=== PATIENT | female | born 1940 | race Caucasian/White ===

== ENCOUNTER 2023-03-21 07:01 | Emergency (ER) | payer OTHER, SELFPAY ==
[2023-03-21 07:03] VITALS: BP 141/76
--- NOTE | 2023-03-21 08:04 | ED.GENMED ---
History of Present Illness
<Alondra Wiley PA-C - Last Filed: 03/21/23 16:20>
General
Chief Complaint: Musculo-Skeletal Complaint
Source: patient
Exam Limitations: none
Time Seen by Provider: 03/21/23 07:40
Nursing documentation reviewed up to this point in time: agreed with
Travel History
Have you had any contact with someone who has COVID-19?: No
Do you have any symptoms of coronavirus? Fever > 100 degrees, chills, cough, shortness of breath, sore throat, loss of taste or smell, muscle aches, or headache?: No
History of Present Illness
History of Present Illness:
pt is 82 y/o F with h/o CHF, IN, HTN, SVT
left knee pain this morning, started overnight
cannot recall any injury
denies fever, chills, nausea, vomiting, h/o gout, erythema, rash, other joint pain
no known lyme disease
pt didn't take anything for pain
she had a lot of trouble walking and couldn't get to her medications
lives with her sons and called them to help her
pt has never had this before
previously had the R TKR by leandro she thinks but she cannot recall
Past History
<Alondra Wiley PA-C - Last Filed: 03/21/23 16:20>
Past History
ED Past Medical History: Other (Breast CA-last chemo in 05/21)
ED Past Surgical History: Other (left mastectomy, Port placeent)
Social History
Personal: Single
Living: with family
Employment: Employed
Review of Systems
<SHREE Maldonado Last Filed: 03/21/23 16:20>
Review of Systems
Allergies reviewed?: Yes
All Other Systems: Not applicable
Phy Exam
<Alondra Wiley PA-C - Last Filed: 03/21/23 16:20>
Physical Exam
Physical Exam:
GENERAL: Alert , in no apparent distress
HEAD: NCAT
NECK: no midline tenderness, active ROM intact, no paraspinal muscle tenderness;
EYE: pupils equal and reactive, EOMs intact.
ENT: o/p clr, mmm. no hemotympanum
CARDIAC: Regular rate and rhythm, no edema
LUNGS: Clear breath sounds bilaterally, no acute respiratory distress, no wheezes/rales/rhonchi
ABDOMEN: Soft, without focal tenderness, no r/g, no cvat
NEUROLOGICAL: Alert and oriented, no focal neuro deficits, CN intact, 5/5 strength, sensation intact
SKIN: Warm and dry,
no erythemna L knee
no rash
no warmth
normal perfusion LE
MUSCULOSKELETAL: moderate effusion, mostly suprapatellar; nontender calf/ankle
very painful ROM of th eleft knee
limited flexion 20 degrees passively
no warmth
no laxity
PSYCH: Normal and appropriate interaction.
Course
<Alondra Wiley PA-C - Last Filed: 03/21/23 16:20>
Orders/Labs/Results
Orders:
Orders
03/21/23 07:07
Knee, Left 4 or More Views [CR Knee - Left 4 Or More View*] Urgent
Comment:
Reason For Exam: pain and swelling, no injury
03/21/23 08:04
Acetaminophen [Tylenol] 650 mg PO NOW STA
Ibuprofen [Motrin] 400 mg PO NOW STA
03/21/23 09:20
Body Fluid Cell Count Urgent
What is the Body Fluid: joint
Date Specimen was Collected: 03/21/23
Time Specimen was Collected: 09:17
Comment: with DIFF
Body Fluid Crystals Urgent
What is the Body Fluid: joint
Date Specimen was Collected: 03/21/23
Time Specimen was Collected: 09:17
Body Fluid Glucose Urgent
Fluid Source: Other
Date Specimen was Collected: 03/21/23
Time Specimen was Collected: 09:17
C-Reactive Protein Urgent
Comment: ADD ON
Comprehensive Metabolic Panel Urgent
Lyme Progressive Urgent
Fluid Culture with Gram Stain Urgent
SAMANTHA Source: Joint Fluid
Specimen Description:
Date Specimen was Collected: 03/21/23
Time Specimen was Collected: 09:17
03/21/23 10:33
Complete Blood Count/With Diff Urgent
Erythrocyte Sed Rate Urgent
Comment: ADD ON
03/21/23 11:01
Add On- LAB Urgent
Tests Added?: esr, crp
Abnormal Lab Results
03/21/23 03/21/23
09:20 10:33
RBC 4.07 L 10^6/uL
(4.20-5.40)
Hgb 11.9 L g/dL
(12.0-16.0)
Hct 34.3 L %
(37.0-47.0)
Absolute Neuts (auto) 7.2 H 10^3/uL
(1.4-6.5)
Absolute Monos (auto) 1.1 H 10^3/uL
(0.1-0.6)
Neutrophils % 75.5 H %
(42.2-75.2)
Lymphocytes % 12.4 L %
(20.5-51.1)
Monocytes % 11.6 H %
(1.7-9.3)
ESR 38 H mm/hour
(0-20)
Sodium 128 L mmol/L
(135-145)
Creatinine 0.5 L mg/dL
(0.6-1.0)
Glucose 102 H mg/dl
(70-99)
Calcium 8.3 L mg/dl
(8.4-10.2)
C-Reactive Protein 64.40 H mg/L
(0.0-10.00)
Total Protein 5.9 L g/dl
(6.3-8.2)
03/21/23 10:33
03/21/23 09:20
Vital Signs
Initial and Last Documented VS:
Initial Vital Signs
Temp Pulse Resp BP Pulse Ox
98.0 F 63 17 141/76 96
03/21/23 07:03 03/21/23 07:03 03/21/23 07:03 03/21/23 07:03 03/21/23 07:03
Last Documented Vital Signs
Temp Pulse Resp BP Pulse Ox
98.0 F 64 16 129/60 97
03/21/23 07:03 03/21/23 14:48 03/21/23 14:48 03/21/23 14:48 03/21/23 14:48
<Solo Russell, DO - Last Filed: 03/21/23 13:50>
Orders/Labs/Results
Orders:
Orders
03/21/23 07:07
Knee, Left 4 or More Views [CR Knee - Left 4 Or More View*] Urgent
Comment:
Reason For Exam: pain and swelling, no injury
03/21/23 08:04
Acetaminophen [Tylenol] 650 mg PO NOW STA
Ibuprofen [Motrin] 400 mg PO NOW STA
03/21/23 09:20
Body Fluid Cell Count Urgent
What is the Body Fluid: joint
Date Specimen was Collected: 03/21/23
Time Specimen was Collected: 09:17
Comment: with DIFF
Body Fluid Crystals Urgent
What is the Body Fluid: joint
Date Specimen was Collected: 03/21/23
Time Specimen was Collected: 09:17
Body Fluid Glucose Urgent
Fluid Source: Other
Date Specimen was Collected: 03/21/23
Time Specimen was Collected: 09:17
C-Reactive Protein Urgent
Comment: ADD ON
Comprehensive Metabolic Panel Urgent
Lyme Progressive Urgent
Fluid Culture with Gram Stain Urgent
SAMANTHA Source: Joint Fluid
Specimen Description:
Date Specimen was Collected: 03/21/23
Time Specimen was Collected: 09:17
03/21/23 10:33
Complete Blood Count/With Diff Urgent
Erythrocyte Sed Rate Urgent
Comment: ADD ON
03/21/23 11:01
Add On- LAB Urgent
Tests Added?: esr, crp
Abnormal Lab Results
03/21/23 03/21/23
09:20 10:33
RBC 4.07 L 10^6/uL
(4.20-5.40)
Hgb 11.9 L g/dL
(12.0-16.0)
Hct 34.3 L %
(37.0-47.0)
Absolute Neuts (auto) 7.2 H 10^3/uL
(1.4-6.5)
Absolute Monos (auto) 1.1 H 10^3/uL
(0.1-0.6)
Neutrophils % 75.5 H %
(42.2-75.2)
Lymphocytes % 12.4 L %
(20.5-51.1)
Monocytes % 11.6 H %
(1.7-9.3)
ESR 38 H mm/hour
(0-20)
Sodium 128 L mmol/L
(135-145)
Creatinine 0.5 L mg/dL
(0.6-1.0)
Glucose 102 H mg/dl
(70-99)
Calcium 8.3 L mg/dl
(8.4-10.2)
C-Reactive Protein 64.40 H mg/L
(0.0-10.00)
Total Protein 5.9 L g/dl
(6.3-8.2)
03/21/23 10:33
03/21/23 09:20
Vital Signs
Initial and Last Documented VS:
Initial Vital Signs
Temp Pulse Resp BP Pulse Ox
98.0 F 63 17 141/76 96
03/21/23 07:03 03/21/23 07:03 03/21/23 07:03 03/21/23 07:03 03/21/23 07:03
Last Documented Vital Signs
Temp Pulse Resp BP Pulse Ox
98.0 F 64 16 129/60 97
03/21/23 07:03 03/21/23 14:48 03/21/23 14:48 03/21/23 14:48 03/21/23 14:48
Procedures
<Alondra Wiley PA-C - Last Filed: 03/21/23 16:20>
Incision/Drainage/Joint Aspiration
Left Lateral Knee:
Anethesia: 1% Lidocaine
Preparation: cleaned with Betadine
Type of procedure: aspiration
Nature of site: other (Joint fluid)
How much fluid was obtained?: number in mls (30 mL)
Fluid description: straw colored (Slightly cloudy) and blood tinged
Treatment: bandaid applied
<Alondra Wiley PA-C - Last Filed: 03/21/23 16:20>
MDM/Problems Addressed
Differential Diagnosis Includes:
OA, septic joint
MDM/Problems Addressed:
82 y/o F
tells me no history of arthritis in this lef tknee
atrauamtic left knee pain and swelling this morning causing her inability to walk. She has not had any fever or skin changes.
Patient had very limited painful range of motion of the knee with an effusion, no calf tenderness, normal distal neuroexam. Her x-ray revealed moderate DJD, were independently reviewed by me. No fractures. Discussed risk-benefit of arthrocentesis
for pain relief. As I suspected that there would not be any Reason for the patient to have septic arthritis. Most likely osteoarthritis and inflammatory effusion. I was able to remove 30 cc of fluid which did look a little bit bloody and was a
little cloudy, but it was unclear whether that was from the bleeding. Because of that I decided to send the fluid for analysis. Unfortunately the lab resulted that the could not do a cell count. Apparently there was some lag time and when the lab
was running the test and I am not sure if that is what caused the fluid declot in the tube. I appreciate the patient's Gram stain showing white cells. We were unclear whether the patient should be admitted. The patient was seen by the ED
attending. We touch base with orthopedics Dr. Arnold who then did say that the patient has been seen there and actually even had a cortisone shot in that knee and was told she needed a knee replacement. When I went back to speak with her the
patient did recall all of this and said she has been told about the knee replacement before. Patient says she was flustered initially and was not remembering that detail. I had sent ESR and CRP testing which were both elevated however the patient
has no fever and no white count. I discussed all of this findings with Dr. Arnold on-call for orthopedics and he felt that the patient likely had an effusion from OA and he felt that if she could ambulate she could go home and they will closely
follow her. Patient was able to walk with a walker to and from the bathroom. We needed to help her in her son's truck which was very high from the ground but otherwise she did okay. She was given Tylenol and ibuprofen but I hope told her to hold
the ibuprofen and take her meloxicam of breath which she normally takes. She was comfortable going home at this time.
<Alondra Wiley PA-C - Last Filed: 03/21/23 16:20>
*Critical Care Note
Total Time (30-74mins, 75-104mins- exclusive of procedures): Not Applicable
ED Attending Note
<Alondra Wiley PA-C - Last Filed: 03/21/23 16:20>
-
Portions of this chart may have been created with voice recognition software.� Occasional wrong word or��sound alike� substitutions may have occurred due to the inherent limitations of voice recognition software.
<Solo Russell DO - Last Filed: 03/21/23 13:50>
ED Attending Note
Patient seen and examined by attending physician: Yes
I performed the substantive portion of visit, reviewed & personally made and approve the management plan that is documented in note by myself or IRAIDA.: Yes
I performed a history and physical exam of patient and discussed management with resident, I reviewed resident's note and agree with documented findings and plan of care.: Yes
ED Attending Note:
I evaluated patient at bedside. The patient states that she did see [facility] orthopedics and has had steroid injection which improved therefore she did not follow-up for possible TKA. Currently she appears fairly comfortable and she reportedly
was able to ambulate to the bathroom with assistance. She lives with sons at home.
Discharge Plan
Departure
Patient Disposition: Home (Routine Discharge)
Date of Disposition: 03/21/23
Time of Disposition: 12:50
Admit to: Med/Surg
Patient with high blood pressure during this ER visit?: No
Condition: Fair
Covid-19: Not Applicable
Discharge Problem:
Arthritis of knee, left, Ambulatory dysfunction
Instructions: Osteoarthritis (DC)
Prescriptions:
New
ibuprofen 400 mg tablet
400 mg PO Q8H 3 Days Qty: 10 0RF
No Action
hydroxychloroquine 200 MG tablet
400 mg PO DAILY
melatonin 5 MG tablet
5 mg PO HS
levothyroxine 125 MCG tablet
125 mcg PO DAILY
furosemide 40 MG tablet
40 mg PO DAILY Qty: 30 0RF
Jardiance 10 MG tablet
10 mg PO DAILY Qty: 30 0RF
carvedilol 6.25 mg Tablet
12.5 mg PO DAILY
Patient Comments:
03/21/2023, prescribed for pt. to take one tablet BID but pt. states to take 2 tablets daily.
meloxicam 15 mg Tablet
15 mg PO DAILY PRN (Reason: mild pain)
polyvinyl alcohol [Dry Eyes] 1.4 % Drops
1 drp BOTH EYES DAILYPRN PRN (Reason: dry eyes)
Theragen Tablet
2 tab PO DAILY
Entresto 24-26 mg Tablet
1 tab PO BID
acetaminophen 325 MG tablet
650 mg PO Q6HPRN PRN (Reason: mild pain/fever>100.5F)
losartan 25 MG tablet
25 mg PO DAILY
folic acid 1 MG tablet
1 mg PO NOON
Referrals:
Jim Gillis MD [Active] - Follow up in 5-7 days (orthopediccs)
Anay Harkins PA-C [Family Provider] -
Activity Restrictions/Additional Instructions:
You really need to follow-up with your orthopedist. You can use the Stew wrap during the day, take it off at night and ice your knee and reapply the Stew wrap in the morning for the next couple of days. Use the walker to help you walk. Take Tylenol
3 times a day for pain. You can use either your meloxicam that you have been given before or Motrin 400 mg for pain as well 3 times a day with food for 3 to 5 days.
Call the orthopedist to make a follow-up appointment. Return to the ER immediately for fever, redness of the skin of your knee, inability to walk, severe pain or any concerns
Interventions
Interventions:
*Risk Screen - Suicide Last Done: 03/21/23 08:56
*General Assessment Last Done: 03/21/23 08:56
*Neglect/Abuse Screening Last Done: 03/21/23 08:56
ED- Fall Risk Assessment Last Done: 03/21/23 08:56
*ED COVID-19 Vaccine History Last Done: 03/21/23 08:56
*Nursing Disposition Last Done: 03/21/23 14:49
ED-Musculoskeletal Assessment Last Done: 03/21/23 08:56
Discharge Date and Time
Discharge Date/Time: 03/21/23 14:51
[2023-03-21] MEDS: MOTRIN 400 MG PO (08:47)
[2023-03-21] MEDS: TYLENOL 650 MG PO (08:47)
[2023-03-21 10:43] LABS: % Basophils 0.2 % (0-2); % Immature Granulocytes 0.3 % (0-0.5); % Lymphocytes 12.4 % (20.5-51.1); % Monocytes 11.6 % (1.7-9.3); % Neutrophils 75.5 % (42.2-75.2); Absolute Lymphocytes 1.2 10^3/uL (1.2-3.4); Absolute Monocytes 1.1 10^3/uL (0.1-0.6); Absolute Neutrophils 7.2 10^3/uL (1.4-6.5); Hematocrit 34.3 % (37.0-47.0); Hemoglobin 11.9 g/dL (12.0-16.0); Mean Corp Hgb Conc. 34.7 g/dL (33.0-37.0); Mean Corpuscular Hgb 29.2 pg (27.0-31.0); Mean Corpuscular Volume 84.3 fL (81.0-99.0); Mean Platelet Volume 8.7 fL (7.4-10.4); Nucleated Red Blood Cells % 0 %; Platelet Count 236 10^3/uL (130-400); Red Blood Cell Count 4.07 10^6/uL (4.20-5.40); Red Cell Dist. Width 13.3 % (11.5-14.5); White Blood Cell Count 9.5 10^3/uL (4.8-10.8)
[2023-03-21 10:46] LABS: ALT (SGPT) 11 U/L (0-35); AST (SGOT) 21 U/L (14-36); Albumin 3.5 g/dl (3.5-5.0); Alkaline Phosphatase 74 U/L (38-126); Blood Urea Nitrogen 15 mg/dl (7-17); Calcium 8.3 mg/dl (8.4-10.2); Carbon Dioxide 25 mmol/L (22-30); Chloride 98 mmol/L (98-107); Glucose 102 mg/dl (70-99); Potassium 3.6 mmol/L (3.5-5.1); Sodium 128 mmol/L (135-145); Total Bilirubin 1.1 mg/dl (0.2-1.3); Total Protein 5.9 g/dl (6.3-8.2); eGFR > 60.00
[2023-03-21 12:06] LABS: Body Fluid Glucose 99 mg/dl
[2023-03-21 12:26] LABS: Erythrocyte Sed Rate 38 mm/hour (0-20)
[2023-03-21 14:48] VITALS: BP 129/60
[2023-03-21 14:58] LABS: Body Fluid Granulocytes 91 %; Body Fluid Lymphocytes 5 %; Body Fluid Macrophages 4 %
[2023-03-25 16:46] LABS: Lyme Antibody Screen, EIA Negative (Negative)
== END 2023-03-21 14:51 | disposition home or self-care (01) ==
LOC: EMR 07:01
PROVIDERS: Physician Assistant; EMERGENCY PHYSICIAN Emergency Medicine; FAMILY PHYSICIAN Physician Assistant Medical
DX: M17.12 Unilateral primary osteoarthritis, left knee (principal); R26.2 Difficulty in walking, not elsewhere classified; M25.462 Effusion, left knee
CPT/HCPCS: 99283; 20610; 73564; 80053; 82945; 85025; 85652; 86140; 86618; 87015; 87070; 87205; 89051; 89060

== ENCOUNTER 2023-06-01 09:49 | Inpatient (IN) | payer MEDICARE, SELFPAY ==
[2023-05-31 21:33] VITALS: BP 157/79
--- NOTE | 2023-05-31 22:37 | ED.GENMED ---
History of Present Illness
General
Chief Complaint: Musculo-Skeletal Complaint
Source: patient
Exam Limitations: none
Time Seen by Provider: 05/31/23 22:25
Nursing documentation reviewed up to this point in time: agreed with
Travel History
Have you had any contact with someone who has COVID-19?: No
Do you have any symptoms of coronavirus? Fever > 100 degrees, chills, cough, shortness of breath, sore throat, loss of taste or smell, muscle aches, or headache?: Yes
Symptoms:: cough
History of Present Illness
History of Present Illness:
The patient is an 82-year-old female who reports that she has ' [id number]' in her left knee and the pain has become so severe that is difficult for her to walk. Patient reports that she has had left knee pain for almost a year. She denies
fevers and chills. She denies fall. She reports it has gradually become more painful and swollen. Patient also reports a cough productive of mucus, which she attributes to allergies. She denies sore throat, chest pain or shortness of breath.
She denies headache. She denies nausea, vomiting and diarrhea.
Past History
Past History
ED Past Medical History: CAD, CHF, HTN, Hypothyroidism and Other (Breast CA-last chemo in 05/21)
ED Past Surgical History: Orthopedic and Other (left mastectomy, Port placeent)
Social History
Tobacco: Other
Alcohol: Other
Drug: None
Personal: Single
Living: with family
Employment: Other
Family History
Family History: Other
Review of Systems
Review of Systems
Allergies reviewed?: Yes
All Other Systems: ROS reviewed and negative except as documented in HPI and ROS
Constitutional: Reports no symptoms
EENT: Reports runny nose
Respiratory: Reports cough
Cardiac: Reports no symptoms
ABD/GI: Reports no symptoms
: Reports no symptoms
Musculoskeletal: Reports joint pain and joint swelling
Skin: Reports no symptoms
Neurological: Reports no symptoms
Endocrine: Reports no symptoms
Hematologic/Lymphatic: Reports no symptoms
Psychiatric: Reports no symptoms
Phy Exam
Physical Exam
Physical Exam:
Physical Exam
General: no apparent distress, not acutely ill
Neck: supple. no meningeal signs. normal posterior pharynx
Heart: s1/s2 regular rate and rhythm, no murmur. equal radial pulses.
Lungs: No respiratory distress. No obvious crackles or wheezing. Patient frequently coughing
Abdomen: normal bowel sounds. not tender. no CVAT
Neuro: alert and oriented. no focal neurological deficits
Skin: no rash
Psychiatric: well kept. interactive and cooperative
Extremities: Strong pulses bilateral feet. Moderate left knee effusion. Soft tissue tenderness of left knee. Pain with flexion of left knee. Left knee is slightly warm to the touch but not erythematous
Course
Orders/Labs/Results
Orders:
Orders
05/31/23 22:37
CR Chest - 2 Views Urgent
Comment:
Reason For Exam: cough
05/31/23 23:57
Cell Count (Body Fluid) [Body Fluid Cell Count] Urgent
What is the Body Fluid: knee joint
Date Specimen was Collected: 05/31/23
Time Specimen was Collected: 23:49
Comment: left knee
Fluid Culture with Gram Stain Urgent
SAMANTHA Source: Joint Fluid
Specimen Description:
Date Specimen was Collected: 05/31/23
Time Specimen was Collected: 23:49
Comment: left knee
06/01/23 04:44
CRP [C-Reactive Protein] Urgent
Complete Blood Count/With Diff Urgent
Comprehensive Metabolic Panel Urgent
ESR [Erythrocyte Sed Rate] Urgent
06/01/23 06:35
Add On - Microbiology Urgent
Comments:: knee joint fluid
Tests Added?: joint fluid, crystals
06/01/23 07:06
Ketorolac [Toradol] 15 mg IV NOW STA
Abnormal Lab Results
06/01/23
04:44
Absolute Monos (auto) 0.7 H 10^3/uL
(0.1-0.6)
Monocytes % 11.7 H %
(1.7-9.3)
ESR 33 H mm/hour
(0-20)
Sodium 133 L mmol/L
(135-145)
Creatinine 0.4 L mg/dL
(0.6-1.0)
Glucose 109 H mg/dl
(70-99)
C-Reactive Protein 19.90 H mg/L
(0.0-10.00)
06/01/23 04:44
06/01/23 04:44
Vital Signs
Initial and Last Documented VS:
Initial Vital Signs
Temp Pulse Resp BP Pulse Ox
99.2 F 99 18 157/79 98
05/31/23 21:33 05/31/23 21:33 05/31/23 21:33 05/31/23 21:33 05/31/23 21:33
Last Documented Vital Signs
Temp Pulse Resp BP Pulse Ox
99.2 F 99 18 157/79 96
05/31/23 21:33 05/31/23 21:33 05/31/23 21:33 05/31/23 21:33 05/31/23 22:35
Procedures
Incision/Drainage/Joint Aspiration
Left Lateral Knee:
Anethesia: 1% Lidocaine with Epi
Preparation: cleaned with Betadine
Type of procedure: drain
Nature of site: other
Loculations broken up: No
How much fluid was obtained?: large amount
Fluid description: straw colored and blood tinged
Additional information:
Left knee joint drained and sent for culture and cell count. Patient tolerated procedure well and gave verbal consent prior to procedure and understands risk benefits.
MDM/Problems Addressed
Differential Diagnosis Includes:
Acute on chronic left knee pain related to osteoarthritis, gout, septic knee
MDM/Problems Addressed:
Patient presents with acute on chronic left knee pain
Chronic conditions affecting care:
Patient has chronic arthritis of left knee.
Acute Exacerbation and/or Progression of Chronic Illness:
Patient is acutely hypertensive, however, there is no sign of CHF or neurological deficit. I suspect this is more related to her being here and being anxious and uncomfortable
*Radiology
Radiology exam reviewed: preliminary read by ED provider (Chest x-ray read by me. No acute disease)
*Pulse Oximetry
Patient hypoxic: no
*Critical Care Note
Total Time (30-74mins, 75-104mins- exclusive of procedures): Not Applicable
Data Reviewed
Review of Other/Old Records Reveals: Discharge Summary (Discharge summary reviewed from 04/2021 when patient was admitted for new onset heart failure)
ED Attending Note
-
Portions of this chart may have been created with voice recognition software.� Occasional wrong word or��sound alike� substitutions may have occurred due to the inherent limitations of voice recognition software.
Discharge Plan
Departure
Patient Disposition: Admit
Date of Disposition: 06/01/23
Time of Disposition: 06:49
Admit to: Med/Surg
Presentation/result/management discussed w/ accepting MD/DO: Hospitalist
Patient with high blood pressure during this ER visit?: Yes
Condition: Good
Covid-19: Not Applicable
Discharge Problem:
Arthritis of left knee, acute left knee effusion
Prescriptions:
No Action
hydroxychloroquine 200 MG tablet
400 mg PO DAILY
melatonin 5 MG tablet
5 mg PO HS
levothyroxine 125 MCG tablet
125 mcg PO DAILY
furosemide 40 MG tablet
40 mg PO DAILY Qty: 30 0RF
Jardiance 10 MG tablet
10 mg PO DAILY Qty: 30 0RF
carvedilol 6.25 mg Tablet
12.5 mg PO DAILY
Patient Comments:
03/21/2023, prescribed for pt. to take one tablet BID but pt. states to take 2 tablets daily.
meloxicam 15 mg Tablet
15 mg PO DAILY PRN (Reason: mild pain)
polyvinyl alcohol [Dry Eyes] 1.4 % Drops
1 drp BOTH EYES DAILYPRN PRN (Reason: dry eyes)
Theragen Tablet
2 tab PO DAILY
Entresto 24-26 mg Tablet
1 tab PO BID
acetaminophen 325 MG tablet
650 mg PO Q6HPRN PRN (Reason: mild pain/fever>100.5F)
losartan 25 MG tablet
25 mg PO DAILY
folic acid 1 MG tablet
1 mg PO NOON
ibuprofen 400 mg tablet
400 mg PO Q8H 3 Days Qty: 10 0RF
Referrals:
Kevin Juarez MD [Family Provider] -
Interventions
Interventions:
*Risk Screen - Suicide Last Done: 05/31/23 21:35
*General Assessment Last Done: 05/31/23 21:35
*Neglect/Abuse Screening Last Done: 05/31/23 21:35
ED- Fall Risk Assessment Last Done: 05/31/23 22:35
*ED COVID-19 Vaccine History Last Done: 05/31/23 22:35
ED-Musculoskeletal Assessment Last Done: 05/31/23 22:35
ED- Pulmonary Assessment Last Done: 05/31/23 22:35
Discharge Date and Time
Print Language: CZECH
[2023-06-01 01:29] LABS: Body Fluid Mononuclear 4.6 %; Body Fluid Polymorphonuclear 95.4 %; Body Fluid WBC 53040 /CUMM
[2023-06-01 01:36] LABS: Body Fluid Second Tech JK
[2023-06-01 04:52] LABS: % Basophils 0.3 % (0-2); % Eosinophils 1.7 % (0-6); % Immature Granulocytes 0.2 % (0-0.5); % Lymphocytes 30.1 % (20.5-51.1); % Monocytes 11.7 % (1.7-9.3); Absolute Eosinophils 0.1 10^3/uL (0-0.7); Absolute Lymphocytes 1.8 10^3/uL (1.2-3.4); Absolute Monocytes 0.7 10^3/uL (0.1-0.6); Absolute Neutrophils 3.3 10^3/uL (1.4-6.5); Hematocrit 38.5 % (37.0-47.0); Hemoglobin 12.8 g/dL (12.0-16.0); Mean Corp Hgb Conc. 33.2 g/dL (33.0-37.0); Mean Corpuscular Volume 84.2 fL (81.0-99.0); Mean Platelet Volume 8.4 fL (7.4-10.4); Nucleated Red Blood Cells % 0 %; Platelet Count 279 10^3/uL (130-400); Red Blood Cell Count 4.57 10^6/uL (4.20-5.40); Red Cell Dist. Width 14.4 % (11.5-14.5); White Blood Cell Count 5.9 10^3/uL (4.8-10.8)
[2023-06-01 05:17] LABS: Erythrocyte Sed Rate 33 mm/hour (0-20)
[2023-06-01 05:22] LABS: Blood Urea Nitrogen 12 mg/dl (7-17); Glucose 109 mg/dl (70-99)
[2023-06-01 05:23] LABS: ALT (SGPT) 13 U/L (0-35); AST (SGOT) 24 U/L (14-36); Albumin 3.9 g/dl (3.5-5.0); Alkaline Phosphatase 69 U/L (38-126); Calcium 9.1 mg/dl (8.4-10.2); Carbon Dioxide 27 mmol/L (22-30); Chloride 103 mmol/L (98-107); Sodium 133 mmol/L (135-145); Total Bilirubin 0.4 mg/dl (0.2-1.3); Total Protein 6.5 g/dl (6.3-8.2); eGFR > 60.00
[2023-06-01] MEDS: TORADOL 15 MG IV (07:23)
[2023-06-01 07:25] VITALS: BP 136/62; BMI 22.6
--- NOTE | 2023-06-01 07:25 | EDRN ---
Received patient on stretcher with c/o left knee pain. +swelling noted of left knee. Patient ambulated with unsteady gait to the bathroom with assist of one because of the pain. Patient is forgetful but answers orientation questions appropriately.
--- NOTE | 2023-06-01 08:52 | HPS.HSE ---
Addendum entered and electronically signed by Celia Hanks MD 06/01/23 09:21:
knee x-ray ordered
Original Note:
Family Physician
-
Family Physician: Kevin Juarez
Chief Complaint
-
left knee pain
History of Present Illness
Ms. Brenda Almonte is a 82 yo woman with hx HTN, Hypothyroidism, breast cancer s/p chemotherapy 2009, Heart failure reduced EF, daily alcohol use, cardiac arrest 04/04 (s/p cath with non-obstructive CAD s/p AICD), presents to the ER with acute on
chronic worsening left knee pain.
Patient states pain has been progressive over past week. No fevers. Has difficulty ambulating, has been using a walker. Increased swelling. Feels as if it's 'bone on bone' pain.
No chest pain or shortness of breath. No nausea/vomiting/diarrhea. No rash. Eating and drinking OK.
Lives at home with 2 sons.
Medical History
Past Medical History
Past Medical History: Reports Other (HTN, Hypothyroidism, Heart failure reduced EF, daily alcohol use, cardiac arrest 04/04 (s/p cath with non-obstructive CAD s/p AICD))
Past Surgical History: Reports Orthopedic
Social History
Tobacco: Non-smoker
Alcohol: Daily
Family History
Family History: Not pertinent
Allergies / Home Medications
Allergies reflects when Allergies were last updated in [facility].
Home Medications with original date entered in [facility]
Allergy/Medication List:
Allergies
Allergy/AdvReac Type Severity Reaction Status Date / Time
Penicillins Allergy Rash Verified 05/31/23 21:32
rofecoxib [From Vioxx] Allergy Rash Verified 05/31/23 21:32
Home Medications
hydroxychloroquine 200 mg tablet 400 mg PO DAILY rheumatoid arthritis 04/01/21
melatonin 5 mg tablet 5 mg PO HS Sleep 04/03/21
empagliflozin 10 mg tablet (Jardiance) 10 mg PO DAILY Heart Failure #30 tabs 04/12/21
furosemide 40 mg tablet 40 mg PO DAILY Fluid retention/Swelling #30 tabs 04/12/21
carvedilol 6.25 mg tablet 6.25 mg PO BID 03/21/23
folic acid 1 mg tablet 1 mg PO NOON Supplement 03/21/23
losartan 25 mg tablet 25 mg PO DAILY Heart Failure 03/21/23
meloxicam 15 mg tablet 15 mg PO DAILY PRN mild pain 03/21/23
polyvinyl alcohol 1.4 % eye drops 1 drp BOTH EYES DAILYPRN PRN dry eyes 03/21/23
therapeutic multivitamin 2 tab PO DAILY 03/21/23
ibuprofen 400 mg tablet 400 mg PO BIDPRN PRN mild pain 06/01/23
levothyroxine 125 mcg tablet (Synthroid) 125 mcg PO DAILY 06/01/23
spironolactone 25 mg tablet 25 mg PO DAILY 06/01/23
Review of Systems
-
History Source: Patient
A 12 point ROS was completed and negative except as noted: Yes
Physical Exam
Vital Signs
Vital Signs
Temp Pulse Resp BP Pulse Ox
98.4 F 88 16 136/62 96
06/01/23 07:25 06/01/23 07:25 06/01/23 07:25 06/01/23 07:25 06/01/23 07:25
Physical Exam
General: No Apparent Distress
HEENT: PERRLA
Respiratory: Clear; No Wheezes
Cardiac: S1/S2 and Regular Rhythm
GI: Soft and Non Tender
Musculoskeletal: Other (left knee with swelling, aspiration site. tender to touch; very minimal flexion 2/2 pain )
Skin: Warm and Dry; No Rash
Neuro: AO x 3
Psych: Other (some forgetfullness noticeable but able to communicate appropriately )
Laboratory Results
-
06/01/23 04:44
06/01/23 04:44
Laboratory Results
Total Bilirubin 0.4 mg/dl (0.2-1.3) 06/01/23 04:44
AST 24 U/L (14-36) 06/01/23 04:44
ALT 13 U/L (0-35) 06/01/23 04:44
Alkaline Phosphatase 69 U/L (38-126) 06/01/23 04:44
Data Reviewed
-
Diagnostic Radiology: Report Reviewed by me
Lab Data: Labs Reviewed by me
Impression/Plan
-
Ms. Brenda Almonte is a 82 yo woman with hx HTN, Hypothyroidism, Heart failure reduced EF, daily alcohol use, cardiac arrest 04/04 (s/p cath with non-obstructive CAD s/p AICD), presents to the ER with acute on chronic worsening left knee pain.
Triage VS: T 99.2, P 99, RR 18, BP 157/79, SpO2 98%
LABS: WBC 5.9, Hg 12.8, PLT 279, ESR 33, Na 133, K+ 4.0, Cr 0.4, Glucose 109, CRP 19.9
CXR
IMPRESSION:
No evidence of pneumonia or congestive heart failure. Minor linear scarring or atelectasis in the posterior lung base.
Fluid analysis: WBC 08355 with PMN 95.4%
Left Knee swelling, concern for septic joint with 95.4% PMN on fluid aspirate
-obtain blood culture
-Vanc/Ceftriaxone
-F/U fluid gram stain and culture
-ortho texted this AM, will consult
-NPO until ortho eval
-pain control
Hx Cardiac Arrest s/p AICD
Non-ischemic cardiomyopathy
-TTE 02/01 with EF 25-30%, mild MR
-resume lasix/spironolactone tomorrow (hold while NPO today)
-SAND MIXER OPERATOR Coreg
-resume losartan tomorrow
Hypothyroidism
-SAND MIXER OPERATOR Synthroid
Daily alcohol use
-patient has 2 drinks/day
-MSAS scoring
Suspect cognitive impairment
-short term memory loss evident on exam
DVT PPx SCD
FULL CODE
--- NOTE | 2023-06-01 09:14 | PHA.VAN.IN ---
Assessment
- Assessment
Renal Function: Appears similar to baseline
Renal Function may be Overestimated due to: AGE
Concomitant Antimicrobials: CEFTRIAXONE
AUC Dosing Plan
- Dosing Variables
Dosing Weight (kg): 56
Dosing CrCl (ml/min): 57
Vd coefficient (L/kg): 0.7
- Empiric Dosing
Initial / Loading Dose: 1000MG
Maintenance Regimen: 1000MG Q24H
Estimated AUC (mcg*h/mL): 506
Estimated Peak (mcg*h/mL): 35.9
Estimated Trough (mcg/ml): 10.9
Estimated Half Life (H): 13.4
- Monitoring
No levels ordered at this time: consider next few days
Pharmacokinetics Vancomycin I
- -
Patient Age: 82
Patient Sex: Female
Vancomycin Day #: 1
Indication: Bone And Joint
Requesting Provider: MELA
Pertinent Antimicrobial Allergies:
PCNS=rash
Height / Weight:
Height 5 ft 2 in
Actual Weight 56 kg
IBW in k.1
Adjusted BW in k.5
- Vital Signs / Lab Results
Temp Pulse Resp BP Pulse Ox
98.4 F 88 16 136/62 96
06/01/23 07:25 06/01/23 07:25 06/01/23 07:25 06/01/23 07:25 06/01/23 07:25
Lab Results - Hematology
06/01/23
04:44
WBC 5.9
Lab Results - Chemistry
06/01/23
04:44
BUN 12
Creatinine 0.4 L
Albumin 3.9
[2023-06-01 09:49] LABS: Magnesium 1.9 mg/dl (1.6-2.3); Phosphorus 3.8 mg/dl (2.5-4.5)
[2023-06-01] MEDS: ROCEPHIN 2000 MG IV (09:59)
[2023-06-01] MEDS: STERILE WATER FOR INJECTION 20 ML IV (09:59)
[2023-06-01] MEDS: VANCOCIN 200 IV (10:44)
[2023-06-01] MEDS: SYNTHROID 125 MCG PO (10:52)
--- NOTE | 2023-06-01 11:48 | CON.ORTHO ---
Consultation
-
Date/Time Consultation Requested: 930 AM 06/01/2023
Date/Time Consultation Performed: 11:15 AM 06/01/2023
Requesting Provider: Latonya
Performing Provider: Tyler
Reason for Consultation: Left knee pain
Consultation - Orthopedics
History
HPI: 82-year-old female history of coronary artery disease, congestive heart failure, hypertension, breast cancer and left knee osteoarthritis presented to the [place] emergency department with complaints of left knee pain and difficulty bearing
weight. She underwent arthrocentesis in the emergency department. She was subsequently admitted to the hospitalist service for ambulatory dysfunction orthopedics was consulted for further evaluation and treatment. Arthrocentesis that was
performed was concerning for possible septic arthritis. History taking patient is somewhat confused and a poor historian. She does report that she has had significant left knee pain for about 4 5 months. She has been seen and evaluated outpatient
basis by Dr. Gillis for consideration of total knee arthroplasty. She lives at home with her son. She denies using a cane or walker for ambulatory assistance. Denies any fevers or chills at home. She does report that she recently had a heart
attack several months ago. She localizes pain to the left knee. She reports pain with ambulation improves at rest. She does note significantly worsening swelling recently. Of note she presented with emergency department approximate 2 months ago
with similar complaints at which time she underwent arthrocentesis and was discharged home. Unfortunately at that encounter, the aspirate clotted and was unable to be sent for synovial fluid analysis.
Allergies / Home Medications
Past medical history: Coronary artery disease, congestive heart failure, hypertension, hypothyroidism, breast cancer, left knee osteoarthritis
Past surgical history: Right total knee arthroplasty right hip arthroplasty, left breast lumpectomy
Social history: Lives at home with son, reported daily alcohol use
Family history: Not pertinent
Allergy/AdvReac Type Severity Reaction Status Date / Time
Penicillins Allergy Rash Verified 05/31/23 21:32
rofecoxib [From Vioxx] Allergy Rash Verified 05/31/23 21:32
�Medication �Instructions �Recorded
hydroxychloroquine 200 mg tablet 400 mg PO DAILY rheumatoid 04/01/21
arthritis
melatonin 5 mg tablet 5 mg PO HS Sleep 04/03/21
empagliflozin 10 mg tablet 10 mg PO DAILY Heart Failure #30 04/12/21
(Jardiance) tabs
furosemide 40 mg tablet 40 mg PO DAILY Fluid 04/12/21
retention/Swelling #30 tabs
carvedilol 6.25 mg tablet 6.25 mg PO BID 03/21/23
folic acid 1 mg tablet 1 mg PO NOON Supplement 03/21/23
losartan 25 mg tablet 25 mg PO DAILY Heart Failure 03/21/23
meloxicam 15 mg tablet 15 mg PO DAILY PRN mild pain 03/21/23
polyvinyl alcohol 1.4 % eye drops 1 drp BOTH EYES DAILYPRN PRN dry 03/21/23
eyes
therapeutic multivitamin 2 tab PO DAILY 03/21/23
ibuprofen 400 mg tablet 400 mg PO BIDPRN PRN mild pain 06/01/23
levothyroxine 125 mcg tablet 125 mcg PO DAILY 06/01/23
(Synthroid)
spironolactone 25 mg tablet 25 mg PO DAILY 06/01/23
Vital Signs / Lab Results
Temp Pulse Resp BP Pulse Ox
98.4 F 88 16 136/62 96
06/01/23 07:25 06/01/23 07:25 06/01/23 07:25 06/01/23 07:25 06/01/23 07:25
06/01/23 04:44
06/01/23 04:44
ESR 33
CRP 19
Synovial cell white count 53,000, PMN 95.4%
Gram stain pending, cultures pending, crystals pending
10 point review systems reviewed and negative unless otherwise stated
General: Mildly confused, alert and oriented to self, unable to name hospital and does report that it is 2021 when asked what year it is
Musculoskeletal left lower extremity
Palpable knee effusion, no erythema, mildly palpable synovial warmth
Active knee range of motion 0 to about 30 degrees limited by pain
Passive range of motion limited to about 45 degrees again limited by pain and significant guarding
No gross instability wrist valgus stress
There is no micromotion tenderness palpation although there is diffuse tenderness palpation suprapatellar pouch and medial lateral joint line
Distal motor and sensation at baseline
No other areas of bony tenderness palpation crepitation or swelling to examination of long bones and joints
Diagnostic studies
X-rays left knee taken today and reviewed by myself do show significant lateral compartment degenerative changes with significant narrowing subchondral sclerosis, there is mild medial joint space narrowing
Assessment / Plan
82-year-old female history of left knee osteoarthritis left knee effusion and recently worsening pain. Aspirate synovial cell count PMN percentage in addition to ESR and CRP concerning for potentially septic joint left knee. I did have a long
discussion the patient however she was somewhat confused. She initially thought that she was being admitted for a total knee arthroplasty and explained to her that this was not the case. I also discussed this at length with both her son as well as
her daughter who is her medical power of .net programmer. Clinically does not seem to have acutely worsened recently. She does have longstanding underlying osteoarthritis. Obviously the lab values from synovial fluid and her inflammatory markers are
concerning for possible septic arthritis. It does appear however that her ESR and CRP were also elevated 2 months ago during the hospitalization. Given unclear clinical picture, would recommend continued observation. Will plan to make patient
n.p.o. midnight. I plan to reevaluate patient first thing in the morning. Certainly if symptoms are not improved, will plan to proceed with surgical arthroscopy left knee irrigation debridement for possible septic arthritis. I did explain in
detail with the patient's daughter possibility of overtreatment but I think I would err on the side of caution given her lab values. We discussed risks benefits alternatives of surgery. Discussed the usual expected perioperative postoperative
course. Verbal consent was obtained from patient's daughter who is medical POA over the telephone.
Nonweightbearing left lower extremity
DVT prophylaxis: Hold in preparation for potential OR tomorrow
Follow-up aspirate lab values
N.p.o. midnight
Antibiotics per primary team
Plan for repeat evaluation in a.m. with possible OR tomorrow for left knee I&D.
--- NOTE | 2023-06-01 13:15 | EDRN ---
Patient taken to room 338-2 on stretcher by principal technical architect.
[2023-06-01 13:23] VITALS: BMI 22.8
[2023-06-01 13:24] VITALS: BP 154/84
[2023-06-01 13:36] VITALS: BMI 22.8
[2023-06-01] MEDS: COREG 6.25 MG PO ×2 (14:18→23:52)
[2023-06-01] MEDS: THIAMINE INJECTION 200 MG IV ×2 (14:18→23:52)
[2023-06-01] MEDS: PLAQUENIL 400 MG PO (14:18)
[2023-06-01 15:00] VITALS: BP 145/68
[2023-06-01] MEDS: FOLVITE 1 MG PO (17:10)
[2023-06-01] MEDS: TYLENOL 650 MG PO (21:02)
[2023-06-01 23:40] VITALS: BP 140/81
[2023-06-01] MEDS: MELATONIN 5 MG PO (23:52)
[2023-06-01] MEDS: DILAUDID 0.25 MG IV (23:58)
[2023-06-02] MEDS: SYNTHROID 125 MCG PO (05:38)
[2023-06-02] MEDS: VANCOCIN 200 IV (05:39)
[2023-06-02 06:50] LABS: % Basophils 0.8 % (0-2); % Eosinophils 4.1 % (0-6); % Immature Granulocytes 0.2 % (0-0.5); % Lymphocytes 32.6 % (20.5-51.1); % Monocytes 10.9 % (1.7-9.3); % Neutrophils 51.4 % (42.2-75.2); Absolute Eosinophils 0.2 10^3/uL (0-0.7); Absolute Lymphocytes 1.6 10^3/uL (1.2-3.4); Absolute Monocytes 0.5 10^3/uL (0.1-0.6); Absolute Neutrophils 2.5 10^3/uL (1.4-6.5); Hematocrit 37.8 % (37.0-47.0); Hemoglobin 12.2 g/dL (12.0-16.0); Mean Corp Hgb Conc. 32.3 g/dL (33.0-37.0); Mean Corpuscular Hgb 27.9 pg (27.0-31.0); Mean Corpuscular Volume 86.5 fL (81.0-99.0); Nucleated Red Blood Cells % 0 %; Platelet Count 260 10^3/uL (130-400); Red Blood Cell Count 4.37 10^6/uL (4.20-5.40); Red Cell Dist. Width 14.1 % (11.5-14.5); White Blood Cell Count 4.9 10^3/uL (4.8-10.8)
[2023-06-02 07:00] VITALS: BP 117/78
[2023-06-02 07:21] LABS: Blood Urea Nitrogen 13 mg/dl (7-17); Calcium 9.2 mg/dl (8.4-10.2); Carbon Dioxide 26 mmol/L (22-30); Chloride 99 mmol/L (98-107); Estimated Creatinine Clearance 55 ml/min; Glucose 106 mg/dl (70-99); Potassium 4.1 mmol/L (3.5-5.1); Sodium 131 mmol/L (135-145); eGFR > 60.00
[2023-06-02] MEDS: FOLVITE 1 MG PO (07:33)
[2023-06-02] MEDS: COREG 6.25 MG PO ×2 (07:34→21:33)
[2023-06-02] MEDS: PLAQUENIL 400 MG PO (07:34)
[2023-06-02] MEDS: THIAMINE INJECTION 200 MG IV ×2 (07:34→21:31)
--- NOTE | 2023-06-02 07:59 | W.PN.ORTHO ---
Today's Communication / Plan
-
82-year-old female history of left knee osteoarthritis with left knee pain effusion and ambulatory dysfunction. Again I had a long discussion the patient this morning. She is again somewhat confused but she conveys to me that her pain really has
not worsened acutely recently. She continues to be under the impression that she is here for total knee arthroplasty and again explained her that this is not the case and that there is concern that she may potentially have an infected knee versus
inflammatory process. Synovial cell count ESR CRP were elevated. However ESR CRP have been elevated for the last couple of months when compared to previous lab values. Again clinically she does not examine as if she has a septic knee. Certainly
synovial cell count of 50,000 or so is in the realm of possibility of inflammatory process. Cannot see any results for crystals from synovial fluid analysis. I think it be reasonable to continue to monitor patient clinically as she is
nontoxic-appearing. By reports, she was able to ambulate yesterday without much difficulty. Would actually recommend mobilizing her today to see how she does. Certainly if she is able to ambulate more or less at her baseline I really would not
suspect that she has a septic joint. Will plan to reaspirate knee today and sent for fluid analysis again particular for crystals. I explained this in detail to the patient as well as her daughter on the telephone is her medical power of furniture finisher helper.
Weightbearing as tolerated left lower extremity
Follow-up synovial fluid analysis
Pain control
Antibiotics per primary team
Will continue to follow clinically closely
Please reach out any questions or concerns
Subjective
.
.:
Patient resting comfortably in bed this morning. Per reports, patient actually did ambulate yesterday without too much difficulty from the stretcher to the bed. Denies any fevers or chills. Again patient somewhat confused this morning but she
expresses that her pain really has not significantly worsened recently and she has been dealing with more or less the same pain and limitations with regards to knee range of motion for the last 3 to 6 months.
Vital Signs and Labs
.
Vital Signs and Labs:
Lab Results
06/02/23 06:12
06/02/23 06:12
Temp Pulse Resp BP Pulse Ox
98.3 F 65 17 172/78 95
06/01/23 23:40 06/02/23 07:34 06/01/23 23:40 06/02/23 07:34 06/01/23 23:40
Cultures pending, Gram stain negative without any organisms seen, cannot see crystal results
Physical Exam
-
Musculoskeletal left lower extremity
Palpable knee effusion
Skin intact, no erythema, no ecchymosis
Minimal palpable warmth
Passive knee range of motion 0 to about 90 degrees with some pain at terminal motion
No gross instability respect stress
Genu valgum deformity
No micromotion tenderness palpation
Distal motor and sensation at baseline
--- NOTE | 2023-06-02 08:32 | W.PN.UPDATE ---
Update Note
Progress Note Update
Procedure: Left knee aspiration
Utilizing lateral suprapatellar approach to the knee, skin was marked and cleaned with alcohol. 18 gauge needle was then introduced into the suprapatellar pouch and approximately 40 cc straw colored fluid with some fluid particulate noted was
aspirated from the knee. Band aid was applied and elida bandage was used for compression. Patient tolerated the procedure well. Plan to send for cell count, gram stain, culture, crystals, lyme.
[2023-06-02] MEDS: ROCEPHIN 2000 MG IV (09:00)
[2023-06-02] MEDS: STERILE WATER FOR INJECTION 20 ML IV (09:00)
--- NOTE | 2023-06-02 09:22 | PHA.VAN.FU ---
Vancomycin Assessment / Plan
- Assessment
Renal Function: Stable
WBC's are: WNL
In the past 24 hrs, patient has been: Afebrile
Concomitant Antimicrobials: CEFTRIAXONE
- Dosing Plan
Continue: 1000MG Q24H
- Monitoring Plan
Peak Level: 06/03 @0830
Trough Level: 06/04 @0530
- Follow Up
Pharmacy will continue to follow.
Vancomycin Follow UP
- -
Patient Age: 82
Patient Sex: Female
Vancomycin Day #: 2
Indication: Bone And Joint
Requesting Provider: MELA
Pertinent Antimicrobial Allergies:
PCNS=rash
Height / Weight:
Height 5 ft 1 in
Actual Weight 54.613 kg
IBW in k.1
Adjusted BW in k.5
- Vital Signs / Lab Results
Temp Pulse Resp BP Pulse Ox
98.0 F 65 18 172/78 97
06/02/23 07:00 06/02/23 07:34 06/02/23 07:00 06/02/23 07:34 06/02/23 07:00
Lab Results - Hematology
06/01/23 06/02/23
04:44 06:12
WBC 5.9 4.9
Lab Results - Chemistry
06/01/23 06/02/23
04:44 06:12
BUN 12 13
Creatinine 0.4 L 0.5 L
Estimated Creat Clear 55
Albumin 3.9
Microbiology Results
05/31/23 23:57 Body Fluid Culture - Preliminary
Joint Fluid No Growth After 18-24 Hours
Gram Stain - Preliminary
[2023-06-02 09:23] LABS: Body Fluid WBC 36550 /CUMM
[2023-06-02 09:24] LABS: Body Fluid Mononuclear 6.6 %; Body Fluid Polymorphonuclear 93.4 %
[2023-06-02 10:32] LABS: Body Fluid Second Tech AP
--- NOTE | 2023-06-02 10:41 | W.PN.HOSP.TC ---
Today's Communication/Plan
-
resume diuretics
Vanc/Ceftriaxone
appreciate ortho - F/U further recs tomorrow AM
Assessment / Plan
Assessment / Plan
Ms. Brenda Almonte is a 82 yo woman with hx HTN, Hypothyroidism, Heart failure reduced EF, daily alcohol use, cardiac arrest 04/04 (s/p cath with non-obstructive CAD s/p AICD), presents to the ER with acute on chronic worsening left knee pain.
Triage VS: T 99.2, P 99, RR 18, BP 157/79, SpO2 98%
LABS: WBC 5.9, Hg 12.8, PLT 279, ESR 33, Na 133, K+ 4.0, Cr 0.4, Glucose 109, CRP 19.9
CXR
IMPRESSION:
No evidence of pneumonia or congestive heart failure. Minor linear scarring or atelectasis in the posterior lung base.
Fluid analysis: WBC 32836 with PMN 95.4%
Left Knee swelling, concern for septic joint with 95.4% PMN on fluid aspirate
-obtain blood culture
-Vanc/Ceftriaxone (day 2)
-F/U fluid gram stain and culture
-appreciate ortho - with improvement this AM will see how patient does over next 24 hours. If able to ambulate then not suspicious for septic joint. NPO after MN
Hx Cardiac Arrest s/p AICD
Non-ischemic cardiomyopathy
-TTE 02/01 with EF 25-30%, mild MR
-resume lasix/spironolactone
-DRIVER'S LICENSE REVIEWING OFFICER Coreg
-DRIVER'S LICENSE REVIEWING OFFICER Losartan
Hypothyroidism
-DRIVER'S LICENSE REVIEWING OFFICER Synthroid
Daily alcohol use
-patient has 2 drinks/day
-MSAS scoring
Suspect cognitive impairment
-short term memory loss evident on exam, son confirms this is chronic
DVT PPx SCD
FULL CODE
Anticipated Discharge: 24 - 48 hours
Subjective/Interval History
-
Date of Service: June 02, 2023
continues to have left knee pain
no fevers overnight
Objective Data
-
Labs:
Laboratory Results
06/02/23
06:12
WBC 4.9
Hgb 12.2
Hct 37.8
Plt Count 260
Sodium 131 L
Potassium 4.1
Chloride 99
Carbon Dioxide 26
BUN 13
Creatinine 0.5 L
Glucose 106 H
Calcium 9.2
Vital Signs:
Vital Signs
Temp Pulse Resp BP Pulse Ox
98.0 F 65 18 172/78 97
06/02/23 07:00 06/02/23 07:34 06/02/23 07:00 06/02/23 07:34 06/02/23 07:00
I&O
06/01/23 06/02/23 06/03/23
06:59 06:59 06:59
Intake Total 1200 / 1200
Balance 1200 / 1200
Review of Systems
-
History Source: Patient
All other systems: Reviewed and negative
Physical Exam
-
General: No Apparent Distress
HEENT: PERRLA
Respiratory: Clear to Auscultation; Negative Wheezes
Cardiac: Regular Rhythm and S1/S2
GI: Soft and Nontender
Musculoskeletal: Other (left knee wrapped)
Skin: Warm and Dry; Negative Rash
Neuro: AO x 3
Psych: Calm
Data Reviewed
-
Diagnostic Radiology: Report Reviewed by me
Labs: Labs Reviewed by me
[2023-06-02] MEDS: COZAAR 25 MG PO (11:57)
[2023-06-02] MEDS: LASIX 40 MG PO (11:57)
[2023-06-02] MEDS: ALDACTONE 25 MG PO (11:57)
[2023-06-02 15:00] VITALS: BP 127/67
--- NOTE | 2023-06-02 16:30 | CM ---
Addendum entered by Isis Hwang 06/02/23 16:34:
Given info on Advance Directives
Original Note:
Spoke with pt at bedside
Lives alone in 2 story home
Confused, needs assist
DME - rolling walker
SNF - no has been to [facility]
HH- denies
PCP - Kevin Juarez
Pharm - [facility]
Pending PT/OT
Plan - pend PT/OT eval
[2023-06-02] MEDS: MELATONIN 5 MG PO (21:31)
[2023-06-02] MEDS: DILAUDID 0.25 MG IV (22:35)
[2023-06-02 23:25] VITALS: BP 126/63
[2023-06-03] MEDS: VANCOCIN 200 IV (05:35)
[2023-06-03] MEDS: SYNTHROID 125 MCG PO (05:35)
[2023-06-03] MEDS: DILAUDID 0.25 MG IV ×3 (05:36→21:55)
[2023-06-03 05:48] LABS: % Basophils 0.6 % (0-2); % Eosinophils 2.1 % (0-6); % Immature Granulocytes 0.3 % (0-0.5); % Lymphocytes 24.6 % (20.5-51.1); % Monocytes 10.6 % (1.7-9.3); % Neutrophils 61.8 % (42.2-75.2); Absolute Eosinophils 0.1 10^3/uL (0-0.7); Absolute Lymphocytes 1.6 10^3/uL (1.2-3.4); Absolute Monocytes 0.7 10^3/uL (0.1-0.6); Absolute Neutrophils 4.1 10^3/uL (1.4-6.5); Hematocrit 39.1 % (37.0-47.0); Hemoglobin 12.5 g/dL (12.0-16.0); Mean Corpuscular Hgb 27.6 pg (27.0-31.0); Mean Corpuscular Volume 86.3 fL (81.0-99.0); Mean Platelet Volume 8.7 fL (7.4-10.4); Nucleated Red Blood Cells % 0 %; Platelet Count 314 10^3/uL (130-400); Red Blood Cell Count 4.53 10^6/uL (4.20-5.40); Red Cell Dist. Width 13.9 % (11.5-14.5); White Blood Cell Count 6.6 10^3/uL (4.8-10.8)
[2023-06-03 06:19] LABS: Blood Urea Nitrogen 12 mg/dl (7-17); Calcium 9.3 mg/dl (8.4-10.2); Carbon Dioxide 29 mmol/L (22-30); Chloride 96 mmol/L (98-107); Estimated Creatinine Clearance 55 ml/min; Glucose 101 mg/dl (70-99); Potassium 4.1 mmol/L (3.5-5.1); Sodium 131 mmol/L (135-145); eGFR > 60.00
[2023-06-03 06:28] VITALS: BMI 22.1
[2023-06-03 07:00] VITALS: BP 115/71
[2023-06-03 07:30] LABS: Erythrocyte Sed Rate 48 mm/hour (0-20)
--- NOTE | 2023-06-03 08:23 | W.PN.ORTHO ---
Today's Communication / Plan
-
82 yo F Left knee OA s/p aspiration consistent with pseudogout
WBAT LLE
PT/OT
f/u previous aspiration labs, gram stain negative, cultures negative thus far
Medical management/ anti inflammatory medications for treatment of pseudogout
Pain control
Follow up with previously established orthopedic surgeon for ongoing treatment of left knee osteoarthritis
No plans for further orthopedic intervention/surgery this hospitalization
Please reach out with any questions or concerns
Subjective
.
.:
Patient resting comfortably at rest this morning. Reports she was able to ambulate somewhat yesterday.
Vital Signs and Labs
.
Vital Signs and Labs:
Lab Results
06/03/23 05:23
06/03/23 05:23
Temp Pulse Resp BP Pulse Ox
98.4 F 79 16 126/63 94
06/02/23 23:25 06/02/23 23:25 06/02/23 23:25 06/02/23 23:25 06/02/23 23:25
Aspiration results 06/02: calcium pyrophosphate crystals
Physical Exam
-
MSK LLE
Effusion palpable left knee, but less tense that yesterday
Moderate TTP about soft tissues of knee
Distal motor and sensation at baseline
[2023-06-03] MEDS: PLAQUENIL 400 MG PO (09:02)
[2023-06-03] MEDS: THIAMINE INJECTION 200 MG IV ×2 (09:03→21:53)
[2023-06-03] MEDS: FOLVITE 1 MG PO (09:03)
[2023-06-03] MEDS: ROCEPHIN 2000 MG IV (09:03)
[2023-06-03] MEDS: STERILE WATER FOR INJECTION 20 ML IV (09:03)
[2023-06-03] MEDS: COREG 6.25 MG PO ×2 (09:04→21:53)
[2023-06-03] MEDS: ALDACTONE 25 MG PO (09:04)
[2023-06-03] MEDS: COZAAR 25 MG PO (09:04)
[2023-06-03] MEDS: LASIX 40 MG PO (09:04)
--- NOTE | 2023-06-03 09:30 | PHA.VAN.FU ---
Vancomycin Assessment / Plan
- Assessment
Renal Function: Stable
WBC's are: WNL
In the past 24 hrs, patient has been: Afebrile
Concomitant Antimicrobials: Ceftriaxone
- Dosing Plan
Continue: 1000mg Q24H
- Monitoring Plan
Peak Level: 06/03 @0830
Trough Level: 06/04 @0530
- Follow Up
Pharmacy will continue to follow.
Vancomycin Follow UP
- -
Patient Age: 82
Patient Sex: Female
Vancomycin Day #: 3
Indication: Bone And Joint
Requesting Provider: MELA
Pertinent Antimicrobial Allergies:
PCNS=rash
Height / Weight:
Height 5 ft 1 in
Actual Weight 53.07 kg
IBW in k.1
Adjusted BW in k.5
- Vital Signs / Lab Results
Temp Pulse Resp BP Pulse Ox
98.5 F 79 16 115/71 94
06/03/23 07:00 06/03/23 07:00 06/03/23 07:00 06/03/23 07:00 06/03/23 07:00
Lab Results - Hematology
06/01/23 06/02/23 06/03/23
04:44 06:12 05:23
WBC 5.9 4.9 6.6
Lab Results - Chemistry
06/01/23 06/02/23 06/03/23
04:44 06:12 05:23
BUN 12 13 12
Creatinine 0.4 L 0.5 L 0.5 L
Estimated Creat Clear 55 55
Albumin 3.9
Microbiology Results
06/02/23 08:43 Gram Stain - Preliminary
Synovial Fluid
06/01/23 09:47 Blood Culture - Preliminary
Blood/Venous No Growth in 24 hours- Final report to follow
06/01/23 09:48 Blood Culture - Preliminary
Blood/Venous No Growth in 24 hours- Final report to follow
05/31/23 23:57 Body Fluid Culture - Preliminary
Joint Fluid No Growth After 18-24 Hours
Gram Stain - Preliminary
--- NOTE | 2023-06-03 10:56 | W.PN.HOSP.TC ---
Today's Communication/Plan
-
Antibiotics stopped
Ice pack
Start steroids
Pain control
PT and OT
Assessment / Plan
Assessment / Plan
Ms. Brenda Almonte is a 82 yo woman with hx HTN, Hypothyroidism, Heart failure reduced EF, daily alcohol use, cardiac arrest 04/04 (s/p cath with non-obstructive CAD s/p AICD), presents to the ER with acute on chronic worsening left knee pain.
Left Knee swelling likely 2/2 pseudogout
-obtain blood culture and was also negative so far.
-Vanc/Ceftriaxone discontinued.
-F/U fluid gram stain and culture WBC seen organism.
-Fluid study positive for calcium pyrophosphate crystals
-Contraction of corticosteroid carvedilol. DC antibiotics. Start steroids. Ice pack. Pain control. PT OT.
Hx Cardiac Arrest s/p AICD
Non-ischemic cardiomyopathy
-TTE 02/01 with EF 25-30%, mild MR
-resume lasix/spironolactone
-TIEDOWN OPERATOR Coreg
-TIEDOWN OPERATOR Losartan
Hypothyroidism
-TIEDOWN OPERATOR Synthroid
Daily alcohol use
-patient has 2 drinks/day
-MSAS scoring
Suspect cognitive impairment
-short term memory loss evident on exam, son confirms this is chronic
DVT PPx start lovenox
FULL CODE
Anticipated Discharge: > 48 hours
Subjective/Interval History
-
Date of Service: June 03, 2023
states of knee pain with activity
Objective Data
-
Labs:
Laboratory Results
06/03/23
05:23
WBC 6.6
Hgb 12.5
Hct 39.1
Plt Count 314 D
Sodium 131 L
Potassium 4.1
Chloride 96 L
Carbon Dioxide 29
BUN 12
Creatinine 0.5 L
Glucose 101 H
Calcium 9.3
Vital Signs:
Vital Signs
Temp Pulse Resp BP Pulse Ox
98.5 F 79 16 115/71 94
06/03/23 07:00 06/03/23 09:04 06/03/23 07:00 06/03/23 09:04 06/03/23 07:00
I&O
06/02/23 06/03/23 06/04/23
06:59 06:59 06:59
Intake Total 1200 / 1200 1440 / 1440
Balance 1200 / 1200 1440 / 1440
Physical Exam
-
General: No Apparent Distress
HEENT: Normocephalic, Atraumatic and Moist Mucous Membranes
Respiratory: Clear to Auscultation; Negative Wheezes
Cardiac: Regular Rhythm and S1/S2
GI: Soft, Nontender, Nondistended and Normal Bowel Sounds
Musculoskeletal: Other (left knee wrapped but no significant swelling/erythema noted )
Skin: Warm and Dry; Negative Rash
Neuro: Awake and AO x 3
Psych: Calm
Data Reviewed
-
Total Time Spent with Patient (in minutes): 55
[2023-06-03] MEDS: DELTASONE 40 MG PO (11:29)
--- NOTE | 2023-06-03 14:54 | PN.CDI ---
CDI
- -
CDI:
Physician Documentation Request
Admit Date: 06/01/23 09:49
Dear Doctor Magali,
Clinical Indicators:
Patient admitted with pseudogout of left knee.
Home medications include Lasix 40 mg po daily
Sodium levels:
06/01/23 06/02/23 06/03/23
04:44 06:12 05:23
Sodium 133 L 131 L 131 L
Based on the above, could you clarify in the progress notes, the appropriate diagnosis, if significant, that supports the above abnormalities and additional evaluation, monitoring and/or treatment rendered:
Hyponatremia
Abnormal lab value, clinically insignificant
Other, please specify
Use of terms such as suspected, likely, concern for, or probable (associated with a specific diagnosis that is being evaluated, monitored, or treated as if it exists) are acceptable and can be coded in the inpatient setting, when documented at the
time of discharge.
Thank you,
MARIKA Stock RN
CDI Specialist
available via tiger text
Please use your independent medical judgment in providing your response.
[2023-06-03 15:00] VITALS: BP 103/55
[2023-06-03] MEDS: TYLENOL 1000 MG PO ×2 (17:31→21:55)
[2023-06-03] MEDS: LOVENOX 40 MG SC (17:31)
[2023-06-03] MEDS: MELATONIN 5 MG PO (21:53)
[2023-06-03 23:45] VITALS: BP 115/49
[2023-06-04] MEDS: SYNTHROID 125 MCG PO (04:45)
[2023-06-04 06:00] VITALS: BMI 21.8
[2023-06-04 06:05] LABS: Blood Urea Nitrogen 20 mg/dl (7-17); Calcium 9.2 mg/dl (8.4-10.2); Carbon Dioxide 27 mmol/L (22-30); Chloride 97 mmol/L (98-107); Estimated Creatinine Clearance 55 ml/min; Glucose 126 mg/dl (70-99); Potassium 4.1 mmol/L (3.5-5.1); Sodium 132 mmol/L (135-145); eGFR > 60.00
[2023-06-04 07:00] VITALS: BP 146/90
[2023-06-04] MEDS: DELTASONE 40 MG PO (09:10)
[2023-06-04] MEDS: PLAQUENIL 400 MG PO (09:10)
[2023-06-04] MEDS: VITAMIN B1 100 MG PO ×2 (09:10→21:14)
[2023-06-04] MEDS: COZAAR 25 MG PO (09:11)
[2023-06-04] MEDS: FOLVITE 1 MG PO (09:11)
[2023-06-04] MEDS: TYLENOL 1000 MG PO ×3 (09:11→23:29)
[2023-06-04] MEDS: COREG 6.25 MG PO ×2 (09:11→21:09)
[2023-06-04] MEDS: ALDACTONE 25 MG PO (09:11)
[2023-06-04] MEDS: LASIX 40 MG PO (09:12)
[2023-06-04 10:26] LABS: Lyme Disease DNA by PCR Not Detected; Lyme Source Synovial fluid
--- NOTE | 2023-06-04 11:49 | W.PN.HOSP.TC ---
Today's Communication/Plan
-
rehab eval
start dispo planning
Assessment / Plan
Assessment / Plan
Ms. Brenda Almonte is a 82 yo woman with hx HTN, Hypothyroidism, Heart failure reduced EF, daily alcohol use, cardiac arrest 04/04 (s/p cath with non-obstructive CAD s/p AICD), presents to the ER with acute on chronic worsening left knee pain.
Left Knee swelling likely 2/2 pseudogout
-blood culture remains negative so far.
-Vanc/Ceftriaxone discontinued.
-F/U fluid gram stain and culture -with WBC but no organism seen.
-Fluid study positive for calcium pyrophosphate crystals
-Contraction of colchine due to carvedilol. DC antibiotics. Lyme disease negative for synovial fluid
-Start steroids. Ice pack. Pain control. PT OT.
Hx Cardiac Arrest s/p AICD
Non-ischemic cardiomyopathy
-TTE 02/01 with EF 25-30%, mild MR
-resume lasix/spironolactone
-RACK PRODUCTION WORKER Coreg
-RACK PRODUCTION WORKER Losartan
Hypothyroidism
-RACK PRODUCTION WORKER Synthroid
Daily alcohol use
-patient has 2 drinks/day
-MSAS scoring. Not in withdrawal.
Suspect cognitive impairment
-OP f/u.
Mild hyponatremia
-improved.
DVT PPx start lovenox
FULL CODE
PT/OT-eval
Dispo-rehab eval and start dispo planning.
Anticipated Discharge: Today
Subjective/Interval History
-
Date of Service: June 04, 2023
significant improvement in swelling
improvement in pain
afebrile
Objective Data
-
Labs:
Laboratory Results
06/04/23
05:06
Sodium 132 L
Potassium 4.1
Chloride 97 L
Carbon Dioxide 27
BUN 20 H
Creatinine 0.5 L
Glucose 126 H
Calcium 9.2
Vital Signs:
Vital Signs
Temp Pulse Resp BP Pulse Ox
97.6 F 76 18 146/91 96
06/04/23 07:00 06/04/23 07:00 06/04/23 07:00 06/04/23 09:11 06/04/23 09:15
I&O
06/03/23 06/04/23 06/05/23
06:59 06:59 06:59
Intake Total 1440 / 1440 1200 / 1200
Output Total
Balance 1440 / 1440 1199 / 1199
Physical Exam
-
General: No Apparent Distress
HEENT: Normocephalic, Atraumatic and Moist Mucous Membranes
Respiratory: Clear to Auscultation; Negative Wheezes
Cardiac: Regular Rhythm and S1/S2
GI: Soft, Nontender, Nondistended and Normal Bowel Sounds
Musculoskeletal: Other (left knee significant improvement-no overt swelling noted. R knee scar noted from prior surgery )
Skin: Warm and Dry; Negative Rash
Neuro: Awake and AO x 3
Psych: Calm
[2023-06-04 15:00] VITALS: BP 113/63
--- NOTE | 2023-06-04 15:19 | CM ---
MD entered order for discharge.
LM with Tony flores.
Spoke with patient she said she lives with sons Donato and Nick.
Offered VN she accepted She requested [facility] . [facility] liaison notified of referral.
Spoke with daughter Margarette [phone] reviewed above she agreed dc with [facility] .
Margarette said Nick was working but would pick her up today.
PLAN Home with [facility] if accepted .
--- NOTE | 2023-06-04 15:51 | VNURNOTE ---
Home Health Liaison spoke with patient's daughter Margarette by phone at 1545 to discuss [facility] nurse/therapy, visits, schedule and homebound status. Margarette is agreeable and understands that visits at home will be 2-3 x per week to assess and teach medical
management. Caregiver discussed and Margarette was informed about difference between [facility] and private caregiver.
Margarette is aware that [facility] will contact them for start of care in 1-2 days after discharge from .
[facility] referral completed in [facility].
--- NOTE | 2023-06-04 16:07 | PTOTSP ---
pt currently demonstrates ability to complete simple ADLs, functional transfers, ambulation with supervision to no assistance. pt appears to be forgetful, concern with pt completing IADLs such as cooking, medication management, and driving.
recommend outpatient OT follow up for addressing IADLs. pt does report she lives with 2 sons and has support from them. no acute OT needs identified at this time, will sign off.
[2023-06-04] MEDS: LOVENOX 40 MG SC (17:51)
--- NOTE | 2023-06-04 19:13 | PTCARENOTE ---
Rn Flow [place]- Patient cleared for discharge, called daughter to see what time patient was to be picked-up and to go over dc instructions at daughters request. Daughter then asked if scripts were provided for patients medications that she
takes normally. The daughter then stated that the patient lost her medication at a wellness seminar 4 days prior to coming [facility]. Informed daughter to tell her brother to hold off coming to pick patient up and that this nurse would call back with the
plan. Hung up with the daughter and Shavon Reynoso texted the nurse practitioner and Dr De Los Santos who then cancelled the dc.
[2023-06-04] MEDS: PERCOCET 5/325 1 TABLET PO (21:09)
[2023-06-04] MEDS: MELATONIN 5 MG PO (21:14)
[2023-06-04 23:30] VITALS: BP 116/61
[2023-06-05] MEDS: SYNTHROID 125 MCG PO (05:22)
[2023-06-05 06:00] VITALS: BMI 22.4
[2023-06-05 07:00] VITALS: BP 139/78
[2023-06-05 07:01] LABS: Blood Urea Nitrogen 19 mg/dl (7-17); Calcium 9.2 mg/dl (8.4-10.2); Carbon Dioxide 31 mmol/L (22-30); Chloride 97 mmol/L (98-107); Estimated Creatinine Clearance 55 ml/min; Glucose 95 mg/dl (70-99); Sodium 131 mmol/L (135-145); eGFR > 60.00
[2023-06-05] MEDS: COZAAR 25 MG PO (08:44)
[2023-06-05] MEDS: TYLENOL 1000 MG PO (08:44)
[2023-06-05] MEDS: VITAMIN B1 100 MG PO (08:44)
[2023-06-05] MEDS: FOLVITE 1 MG PO (08:45)
[2023-06-05] MEDS: LASIX 40 MG PO (08:45)
[2023-06-05] MEDS: ALDACTONE 25 MG PO (08:45)
[2023-06-05] MEDS: DELTASONE 40 MG PO (08:45)
[2023-06-05] MEDS: COREG 6.25 MG PO (08:45)
[2023-06-05] MEDS: PLAQUENIL 400 MG PO (08:46)
--- NOTE | 2023-06-05 10:55 | CM ---
Pt for d/c
Concerns regarding pt safety - confused, does she live with anyone? from nursing
Called and left message for son Ramirez [phone] to return call
Spoke with pts daughter Randi [phone]
Per Randi there is always someone at home with pt - usually pts son
Pt has PCP. Daughter will pick and shovel man pt today at approx 3PM
Physician and nursing updated
Plan - home with family and VN
--- NOTE | 2023-06-05 10:59 | W.PN.HOSP.TC ---
Today's Communication/Plan
-
await cm.
medically stable.
Assessment / Plan
Assessment / Plan
Ms. Brenda Almonte is a 82 yo woman with hx HTN, Hypothyroidism, Heart failure reduced EF, daily alcohol use, cardiac arrest 04/04 (s/p cath with non-obstructive CAD s/p AICD), presents to the ER with acute on chronic worsening left knee pain.
Left Knee swelling likely 2/2 pseudogout
-blood culture remains negative so far.
-Vanc/Ceftriaxone discontinued.
-F/U fluid gram stain and culture -with WBC but no organism seen.
-Fluid study positive for calcium pyrophosphate crystals
-Contraction of colchine due to carvedilol. DC antibiotics. Lyme disease negative for synovial fluid
-Start steroids. Ice pack. Pain control. PT OT.
Hx Cardiac Arrest s/p AICD
Non-ischemic cardiomyopathy
-TTE 02/01 with EF 25-30%, mild MR
-resume lasix/spironolactone
-FURNACE HAND Coreg
-FURNACE HAND Losartan
Hypothyroidism
-FURNACE HAND Synthroid
Daily alcohol use
-patient has 2 drinks/day
-MSAS scoring. Not in withdrawal.
Suspect cognitive impairment
-OP f/u.
Mild hyponatremia
-improved.
DVT PPx start lovenox
FULL CODE
PT/OT-eval
Dispo-home VN. Cm for dispo.
Anticipated Discharge: Today
Subjective/Interval History
-
Date of Service: June 05, 2023
Patient ambulatory and without any pain in the left knee.
Objective Data
-
Labs:
Laboratory Results
06/05/23
06:20
Sodium 131 L
Potassium 4.0
Chloride 97 L
Carbon Dioxide 31 H
BUN 19 H
Creatinine 0.5 L
Glucose 95
Calcium 9.2
Vital Signs:
Vital Signs
Temp Pulse Resp BP Pulse Ox
97.9 F 71 18 139/78 95
06/05/23 07:00 06/05/23 07:00 06/05/23 07:00 06/05/23 08:44 06/05/23 07:00
I&O
06/04/23 06/05/23 06/06/23
06:59 06:59 06:59
Intake Total 1200 / 1200 1320 / 1320
Output Total
Balance 1199 / 1199 1320 / 1320
Physical Exam
-
General: No Apparent Distress
HEENT: Normocephalic, Atraumatic and Moist Mucous Membranes
Respiratory: Clear to Auscultation; Negative Wheezes
Cardiac: Regular Rhythm and S1/S2
GI: Soft, Nontender, Nondistended and Normal Bowel Sounds
Musculoskeletal: Other (left knee significant improvement-no overt swelling noted. R knee scar noted from prior surgery )
Skin: Warm and Dry; Negative Rash
Neuro: Awake
Psych: Calm
--- NOTE | 2023-06-05 15:04 | W.DCSUMMARY ---
Discharge Summary
Discharge Data
Date of Admission: 06/01/23
Date of Discharge: 06/05/23
-
Pending Results: No
Hospital Course
82 yo woman with hx HTN, Hypothyroidism, Heart failure reduced EF, daily alcohol use, cardiac arrest 04/04 (s/p cath with non-obstructive CAD s/p AICD), presents to the ER with acute on chronic worsening left knee pain. Patient was evaluated by
orthopedic and underwent left knee aspiration by orthopedic. Patient recently was started on antibiotics. Blood cultures negative. Fluid study culture was negative. Fluid studies are positive for calcium pyrophosphate. Antibiotics were
discontinued. Colchicine interaction with carvedilol and thus patient was started on prednisone. Patient with significant improvement with steroids. Ice pack was applied. Patient was eval by PT and OT and recommended home PT versus outpatient
PT. Patient be discharged home with recommendation to follow-up with her primary orthopedic at [facility].
Discharge Plan
-
Patient Disposition: Home with Home Care
Discharge Diagnosis/Procedures: Left knee pain due to pseudogout
Condition: Fair
Diet: Regular
Activity: With assistance and As tolerated
Driving Restrictions: Not until seen by your Dr
Other Services: VN and PT
Referrals:
Kevin Juarez MD [Family Provider] - in less than 1 week
Prescriptions:
New
acetaminophen [Tylenol Extra Strength] 500 mg Tablet
1,000 mg PO TID 7 Days Qty: 42 0RF
prednisone 10 mg Tablet
See Rx Instructions .ROUTE .COMPLEX Qty: 22 0RF
Rx Instructions:
Take By Mouth:
40 mg daily x3 days, 30 mg daily x2 days,
20 mg daily x2 days, 10 mg daily x2 days.
Continued
melatonin 5 MG tablet
5 mg PO HS
polyvinyl alcohol 1.4 % Drops
1 drp BOTH EYES DAILYPRN PRN (Reason: dry eyes)
therapeutic multivitamin Tablet
2 tab PO DAILY
carvedilol 6.25 mg Tablet
6.25 mg PO BID 30 Days Qty: 60 0RF
folic acid 1 MG tablet
1 mg PO NOON 30 Days Qty: 30 0RF
Jardiance 10 MG tablet
10 mg PO DAILY Qty: 30 0RF
furosemide 40 MG tablet
40 mg PO DAILY 30 Days Qty: 30 0RF
spironolactone 25 mg Tablet
25 mg PO DAILY 30 Days Qty: 30 0RF
levothyroxine [Synthroid] 125 mcg Tablet
125 mcg PO DAILY 30 Days Qty: 30 0RF
Rx Instructions:
Can only take name brand
losartan 25 MG tablet
25 mg PO DAILY 30 Days Qty: 30 0RF
hydroxychloroquine 200 MG tablet
400 mg PO DAILY 30 Days Qty: 60 0RF
Discontinued
meloxicam 15 mg Tablet
15 mg PO DAILY PRN (Reason: mild pain)
ibuprofen 400 mg tablet
400 mg PO BIDPRN PRN (Reason: mild pain)
Discharge Orders:
Discharge Patient (As Directed); Ordered 06/04/23
Ordered By: Bobby De Los Santos
Discharge Date and Time
Discharge Date/Time: 06/05/23 15:03
Print Language: SWEDISH
[2023-06-05 15:05] VITALS: BP 129/78
== END 2023-06-05 15:03 | disposition home health service (06) | DRG 554 ==
LOC: 3 WEST ACU 09:49
PROVIDERS: ADMITTING PHYSICIAN Student in an Organized Health Care Education/Training Program; ATTENDING PHYSICIAN Hospitalist; CONSULT PHYSICIAN Orthopaedic Surgery; EMERGENCY PHYSICIAN Emergency Medicine; FAMILY PHYSICIAN Family Medicine
PROC: 0S9D3ZX Drainage of Left Knee Joint, Percutaneous Approach, Diagnostic (ICD-10-PCS; 2023-05-31)
DX: M11.262 Other chondrocalcinosis, left knee (principal); I50.22 Chronic systolic (congestive) heart failure; I42.8 Other cardiomyopathies; J98.11 Atelectasis; E87.1 Hypo-osmolality and hyponatremia; M17.12 Unilateral primary osteoarthritis, left knee; E03.9 Hypothyroidism, unspecified; I11.0 Hypertensive heart disease with heart failure; I25.10 Atherosclerotic heart disease of native coronary artery without angina pectoris; F10.90 Alcohol use, unspecified, uncomplicated; R05.9 Cough, unspecified; Z96.651 Presence of right artificial knee joint; Z96.641 Presence of right artificial hip joint; Z85.3 Personal history of malignant neoplasm of breast; Z92.21 Personal history of antineoplastic chemotherapy; Z90.12 Acquired absence of left breast and nipple; Z79.890 Hormone replacement therapy; Z79.84 Long term (current) use of oral hypoglycemic drugs; Z95.810 Presence of automatic (implantable) cardiac defibrillator; Z86.74 Personal history of sudden cardiac arrest; Z88.0 Allergy status to penicillin; Z88.8 Allergy status to other drugs, medicaments and biological substances; I25.2 Old myocardial infarction
CPT/HCPCS: 20610; 71046; 73560; 80048; 80053; 83735; 84100; 85025; 85652; 86140; 87015; 87040; 87070; 87205; 87476; 89051; 89060; 96365; 96375; 97116; 97162; 97165; 97530; 99285

== ENCOUNTER 2023-06-11 13:47 | Emergency (ER) | payer MEDICARE, SELFPAY ==
[2023-06-11] VITALS (8 sets, daily range): BP systolic 113–149; BP diastolic 63–110
--- NOTE | 2023-06-11 14:17 | ED.GENMED ---
History of Present Illness
General
Chief Complaint: Extremity Pain (non-traumatic)
Source: patient, records and ambulance crew
Exam Limitations: none
Time Seen by Provider: 06/11/23 13:48
Nursing documentation reviewed up to this point in time: agreed with
Travel History
Have you had any contact with someone who has COVID-19?: No
Do you have any symptoms of coronavirus? Fever > 100 degrees, chills, cough, shortness of breath, sore throat, loss of taste or smell, muscle aches, or headache?: No
History of Present Illness
History of Present Illness:
82-year-old female with a past medical history of hypertension, CAD, CHF, hypothyroidism who presents to the emergency department for left knee pain. Patient was notably admitted to this hospital 06/01/2023 until 06/05/2023�was admitted for
atraumatic left knee pain and was seen by orthopedics ultimately diagnosed with pseudogout. She was started on prednisone due to drug interactions with colchicine and was discharged home. Patient says that she was advised to stop drinking as it
may trigger her symptoms. She says that she did not listen and has been drinking a glass or 2 of wine every night. She says that over the past few days she has had worsening pain in the knee once again and is started to have swelling. She says
she is having trouble getting around due to severe pain when she bends her knee. Today because of her poor functional status her son called to have her evaluated in the hospital again. She has not any fevers or chills. She denies any falls or
trauma. She denies any other complaints.
Past History
Past History
ED Past Medical History: CAD, CHF, HTN, Hypothyroidism and Other (Breast CA-last chemo in 05/21)
ED Past Surgical History: Orthopedic and Other (left mastectomy, Port placeent)
Social History
Tobacco: Other
Alcohol: Other
Drug: None
Personal: Single
Living: with family
Employment: Other
Family History
Family History: Other
Review of Systems
Review of Systems
All Other Systems: ROS reviewed and negative except as documented in HPI and ROS
Constitutional: Denies fever or chills
Respiratory: Denies trouble breathing
Cardiac: Denies chest pain
ABD/GI: Denies abdominal pain or nausea
: Denies flank pain
Musculoskeletal: Reports joint pain (Left knee pain); Denies neck pain or back pain
Neurological: Denies headache, weakness or numbness
Phy Exam
Physical Exam
Physical Exam:
General: Awake, alert, oriented x3; no acute distress
Head: Normocephalic, atraumatic
Eyes: Conjunctiva normal
Throat: Airway intact, handling secretions
Neck: Trachea midline
Lungs: Breathing comfortably no distress
Heart: Regular rate
Neuro: No gross deficits
Skin: no rash, no erythema of the left knee
Extremities: Patient has left knee effusion with some tenderness and fullness in the suprapatellar region; shows no significant pain with inability to patella, no significant joint line tenderness; she has severe pain with attempts at passive
flexion of the knee but appears comfortable at full extension; no pain with internal/external rotation of the left hip, no pain with range of motion of the left ankle; no edema in the left lower extremity; she has good palpable left DP pulse; she
has no skin changes, erythema, wounds in the left lower extremity
Scores
Heart Failure Risk
Heart Failure Risk Score: Not Applicable
Heart Score for Chest Pain Patients
STEMI patient?: Not applicable
Withdrawal Assessment of Alcohol
Withdrawal Assessment Completed?: Not applicable
Course
Orders/Labs/Results
Orders:
Orders
06/11/23 14:13
CR Knee - Left 4 Or More View* Urgent
Comment:
Reason For Exam: left knee pain
06/11/23 14:14
Ketorolac [Toradol] 30 mg IM NOW STA
06/11/23 14:23
Body Fluid Cell Count Urgent
What is the Body Fluid: joint
Comment: with DIFF
Body Fluid Crystals Urgent
What is the Body Fluid: joint
Body Fluid Glucose Urgent
Fluid Source: Other
Other Source: L knee
Fluid Culture with Gram Stain Urgent
SAMANTHA Source: Joint Fluid
Specimen Description:
Gram Stain Stat
SAMANTHA Source: Joint
Specimen Description:
06/11/23 14:34
CRP [C-Reactive Protein] Urgent
Complete Blood Count/With Diff Urgent
ESR [Erythrocyte Sed Rate] Urgent
06/11/23 14:35
Comprehensive Metabolic Panel Urgent
Lyme Progressive Urgent
Abnormal Lab Results
06/11/23 06/11/23
14:34 14:35
Plt Count 410 H 10^3/uL
(130-400)
Abs Immat Gran (auto) 0.1 H 10^3/uL
(0-0.05)
Absolute Neuts (auto) 6.8 H 10^3/uL
(1.4-6.5)
Absolute Monos (auto) 0.9 H 10^3/uL
(0.1-0.6)
Lymphocytes % 17.3 L %
(20.5-51.1)
Monocytes % 9.5 H %
(1.7-9.3)
ESR 32 H mm/hour
(0-20)
Sodium 131 L mmol/L
(135-145)
Creatinine 0.5 L mg/dL
(0.6-1.0)
C-Reactive Protein 12.30 H mg/L
(0.0-10.00)
06/11/23 14:34
06/11/23 14:35
Vital Signs
Initial and Last Documented VS:
Initial Vital Signs
Pulse Resp Pulse Ox
70 19 99
06/11/23 13:54 06/11/23 13:54 06/11/23 13:54
Last Documented Vital Signs
Temp Pulse Resp BP Pulse Ox
36.6 C 68 20 132/65 95
06/11/23 13:56 06/11/23 16:32 06/11/23 16:32 06/11/23 16:32 06/11/23 16:32
Procedures
Incision/Drainage/Joint Aspiration
Left Knee:
Anethesia: 1% Lidocaine with Epi
Preparation: cleaned with Betadine
Type of procedure: aspiration
Nature of site: other (joint effusion)
How much fluid was obtained?: number in mls (20)
Fluid description: straw colored
Treatment: bandaid applied
MDM/Problems Addressed
Differential Diagnosis Includes:
Gout, pseudogout, septic arthritis, osteoarthritis with effusion
MDM/Problems Addressed:
82-year-old female with history as above, recent hospitalization with left knee pain and effusion found to have pseudogout presents to the emergency room for pain and swelling in the left knee once again similar to prior presentation. Hypertensive
but otherwise normal vitals. Exam as above. Plan to check basic labs, will perform arthrocentesis for symptomatic relief and send joint fluid analysis. Check an x-ray of the left knee. Treat with Toradol for pain to start. Reassess after the
above.
Chronic conditions affecting care:
Pseudogout, alcohol use
Acute Exacerbation and/or Progression of Chronic Illness: HTN
*Radiology
Radiology exam reviewed: radiology read reviewed
*Pulse Oximetry
Patient hypoxic: no
*Critical Care Note
Total Time (30-74mins, 75-104mins- exclusive of procedures): Not Applicable
Data Reviewed
Review of Other/Old Records Reveals: Labs, Records, Testing (Fluid analysis) and Discharge Summary
Source: patient and records
ED Attending Note
-
Portions of this chart may have been created with voice recognition software.� Occasional wrong word or��sound alike� substitutions may have occurred due to the inherent limitations of voice recognition software.
Discharge Plan
Departure
Prescriptions:
No Action
melatonin 5 MG tablet
5 mg PO HS
polyvinyl alcohol 1.4 % Drops
1 drp BOTH EYES DAILYPRN PRN (Reason: dry eyes)
therapeutic multivitamin Tablet
2 tab PO DAILY
acetaminophen [Tylenol Extra Strength] 500 mg Tablet
1,000 mg PO TID 7 Days Qty: 42 0RF
prednisone 10 mg Tablet
See Rx Instructions .ROUTE .COMPLEX Qty: 22 0RF
Rx Instructions:
Take By Mouth:
40 mg daily x3 days, 30 mg daily x2 days,
20 mg daily x2 days, 10 mg daily x2 days.
carvedilol 6.25 mg Tablet
6.25 mg PO BID 30 Days Qty: 60 0RF
folic acid 1 MG tablet
1 mg PO NOON 30 Days Qty: 30 0RF
Jardiance 10 MG tablet
10 mg PO DAILY Qty: 30 0RF
furosemide 40 MG tablet
40 mg PO DAILY 30 Days Qty: 30 0RF
spironolactone 25 mg Tablet
25 mg PO DAILY 30 Days Qty: 30 0RF
levothyroxine [Synthroid] 125 mcg Tablet
125 mcg PO DAILY 30 Days Qty: 30 0RF
Rx Instructions:
Can only take name brand
losartan 25 MG tablet
25 mg PO DAILY 30 Days Qty: 30 0RF
hydroxychloroquine 200 MG tablet
400 mg PO DAILY 30 Days Qty: 60 0RF
Referrals:
Jorje Vargas MD [Family Provider] -
Interventions
Interventions:
*Risk Screen - Suicide Last Done: 06/11/23 13:56
*Neglect/Abuse Screening Last Done: 06/11/23 13:56
ED- Fall Risk Assessment Last Done: 06/11/23 13:58
*ED COVID-19 Vaccine History Last Done: 06/11/23 13:57
ED-Skin Assessment Last Done: 06/11/23 13:58
ED-Peripheral Vascular Assessment Last Done: 06/11/23 13:58
ED-Musculoskeletal Assessment Last Done: 06/11/23 13:58
Discharge Date and Time
Print Language: THAI
[2023-06-11] MEDS: TORADOL 30 MG IM (14:19)
[2023-06-11 14:41] LABS: % Basophils 0.5 % (0-2); % Eosinophils 1.7 % (0-6); % Immature Granulocytes 0.5 % (0-0.5); % Lymphocytes 17.3 % (20.5-51.1); % Monocytes 9.5 % (1.7-9.3); % Neutrophils 70.5 % (42.2-75.2); Absolute Basophils 0.1 10^3/uL (0-0.2); Absolute Eosinophils 0.2 10^3/uL (0-0.7); Absolute Immature Granulocytes 0.1 10^3/uL (0-0.05); Absolute Lymphocytes 1.7 10^3/uL (1.2-3.4); Absolute Monocytes 0.9 10^3/uL (0.1-0.6); Absolute Neutrophils 6.8 10^3/uL (1.4-6.5); Hematocrit 38.7 % (37.0-47.0); Hemoglobin 12.9 g/dL (12.0-16.0); Mean Corp Hgb Conc. 33.3 g/dL (33.0-37.0); Mean Corpuscular Volume 84.1 fL (81.0-99.0); Nucleated Red Blood Cells % 0 %; Platelet Count 410 10^3/uL (130-400); White Blood Cell Count 9.7 10^3/uL (4.8-10.8)
[2023-06-11 14:49] LABS: Erythrocyte Sed Rate 32 mm/hour (0-20)
[2023-06-11 14:53] LABS: ALT (SGPT) 15 U/L (0-35); AST (SGOT) 23 U/L (14-36); Albumin 3.9 g/dl (3.5-5.0); Alkaline Phosphatase 69 U/L (38-126); Blood Urea Nitrogen 11 mg/dl (7-17); Calcium 9.3 mg/dl (8.4-10.2); Carbon Dioxide 27 mmol/L (22-30); Chloride 100 mmol/L (98-107); Glucose 86 mg/dl (70-99); Sodium 131 mmol/L (135-145); Total Bilirubin 0.4 mg/dl (0.2-1.3); Total Protein 6.7 g/dl (6.3-8.2); eGFR > 60.00
[2023-06-11 18:23] LABS: Body Fluid Glucose 91 mg/dl
[2023-06-11 18:27] LABS: Body Fluid WBC 17480 /CUMM
[2023-06-11 18:28] LABS: Body Fluid Mononuclear 7.5 %; Body Fluid Polymorphonuclear 92.5 %
[2023-06-11 18:32] LABS: Body Fluid Second Tech EYM
[2023-06-13 15:13] LABS: Lyme Antibody Screen, EIA Negative (Negative)
== END 2023-06-11 20:29 | disposition home or self-care (01) ==
LOC: EMR 13:47
PROVIDERS: EMERGENCY PHYSICIAN Emergency Medicine; FAMILY PHYSICIAN Family Medicine
DX: M25.462 Effusion, left knee (principal); I11.0 Hypertensive heart disease with heart failure; I50.9 Heart failure, unspecified; I25.10 Atherosclerotic heart disease of native coronary artery without angina pectoris; E03.9 Hypothyroidism, unspecified; Z85.3 Personal history of malignant neoplasm of breast; Z90.12 Acquired absence of left breast and nipple
CPT/HCPCS: 99283; 20610; 73564; 80053; 82945; 85025; 85652; 86140; 86618; 87015; 87070; 87205; 89051; 89060

== ENCOUNTER 2023-06-24 13:40 | Emergency (ER) | payer MEDICARE, OTHER, SELFPAY ==
[2023-06-24 13:47] VITALS: BP 124/72
--- NOTE | 2023-06-24 16:01 | ED.GENMED ---
History of Present Illness
General
Chief Complaint: Musculo-Skeletal Complaint
Source: patient
Time Seen by Provider: 06/24/23 15:41
Travel History
Have you had any contact with someone who has COVID-19?: No
Do you have any symptoms of coronavirus? Fever > 100 degrees, chills, cough, shortness of breath, sore throat, loss of taste or smell, muscle aches, or headache?: No
History of Present Illness
History of Present Illness:
82-year-old female with past medical history of hypertension, CHF, previous [place], previous breast cancer presenting to the emergency department for evaluation of continued left knee pain that she states has been ongoing for a long duration of time
noting that her knee is '[id number]' and has been in talks with her orthopedist, Dr. Gillis, about a knee replacement but this is yet to be scheduled. Patient states that her son contacted the ambulance today because she was having pain although
notes she overall did not want to come to the hospital for an appointment scheduled with Dr. Gillis tomorrow. She has been taking Tylenol as needed for pain. She denies any trauma, fevers or infectious symptoms, calf pain or edema or any other
concerns. She did not take anything for the pain yet today.
Past History
Past History
ED Past Medical History: CAD, CHF, HTN, Hypothyroidism and Other (Breast CA-last chemo in 05/21)
ED Past Surgical History: Orthopedic and Other (left mastectomy, [place] place[place])
Social History
Tobacco: Other
Alcohol: None
Drug: None
Personal:
Living: with family
Employment: Other
Family History
Family History: Other
Review of Systems
Review of Systems
All Other Systems: ROS reviewed and negative except as documented in HPI and ROS
Phy Exam
Physical Exam
Physical Exam:
GENERAL: Alert , in no apparent distress
EYE: conjunctiva clear
Head: Normocephalic atraumatic
NECK: Supple,
ENT: mmm.
LUNGS: no acute respiratory distress
NEUROLOGICAL: Alert and oriented
SKIN: Warm and dry, skin intact.
MUSCULOSKELETAL: mild soft tissue swelling of the left knee but without any evidence for joint effusion. Tenderness laterally. Patient allows for active and passive range of motion of the knee. Minimal crepitus. No overlying signs of infection
PSYCH: Normal and appropriate interaction.
Scores
Heart Failure Risk
Heart Failure Risk Score: Not Applicable
Heart Score for Chest Pain Patients
STEMI patient?: Not applicable
Withdrawal Assessment of Alcohol
Withdrawal Assessment Completed?: Not applicable
Course
Orders/Labs/Results
Orders:
Orders
06/24/23 13:49
Knee, Left 4 or More Views [CR Knee - Left 4 Or More View*] Urgent
Comment:
Reason For Exam: pain
06/24/23 16:00
Ibuprofen [Motrin] 600 mg PO NOW STA
Vital Signs
Initial and Last Documented VS:
Initial Vital Signs
Temp Pulse Resp BP Pulse Ox
97.8 F 79 18 124/72 96
06/24/23 13:47 06/24/23 13:47 06/24/23 13:47 06/24/23 13:47 06/24/23 13:47
Last Documented Vital Signs
Temp Pulse Resp BP Pulse Ox
97.8 F 79 18 124/72 96
06/24/23 13:47 06/24/23 13:47 06/24/23 13:47 06/24/23 13:47 06/24/23 13:47
MDM/Problems Addressed
Differential Diagnosis Includes:
Arthritic changes, I do not have concern for infection nor fracture given no trauma
MDM/Problems Addressed:
82-year-old female presenting to the emergency department via EMS for left knee pain. This been an ongoing issue for the patient and 1 that she has been getting worked up by orthopedics for. She already has an appointment scheduled with her
orthopedist tomorrow. Patient seemed frustrated that family is not helping her much around home and it sounds as if family is also getting frustrated with the patient given her inability to perform different tasks that she normally was able to do.
I offered patient case management consult for visiting nurse or extra help at home but she declines this. Will provide patient with a dose of Motrin here for pain control. Would like to avoid opiates given patient's age and concern for side
effects from this medication. Patient already has an appointment scheduled with orthopedics tomorrow. She is otherwise stable for discharge home.
*Radiology
Radiology exam reviewed: preliminary read by ED provider (Degenerative changes without fracture)
*Pulse Oximetry
Patient hypoxic: no
*Critical Care Note
Total Time (30-74mins, 75-104mins- exclusive of procedures): Not Applicable
Data Reviewed
Review of Other/Old Records Reveals: Labs and Records (Patient had arthrocentesis done 2 weeks ago here which was negative for any sign of infection or gout)
ED Attending Note
-
Portions of this chart may have been created with voice recognition software.� Occasional wrong word or��sound alike� substitutions may have occurred due to the inherent limitations of voice recognition software.
Discharge Plan
Departure
Patient Disposition: Home (Routine Discharge)
Date of Disposition: 06/24/23
Time of Disposition: 16:01
Patient with high blood pressure during this ER visit?: No
Discharge Problem:
Knee pain, left
Instructions: Knee Pain (DC)
Prescriptions:
No Action
melatonin 5 MG tablet
5 mg PO HS
polyvinyl alcohol 1.4 % Drops
1 drp BOTH EYES DAILYPRN PRN (Reason: dry eyes)
therapeutic multivitamin Tablet
2 tab PO DAILY
prednisone 10 mg Tablet
See Rx Instructions .ROUTE .COMPLEX Qty: 22 0RF
Rx Instructions:
Take By Mouth:
40 mg daily x3 days, 30 mg daily x2 days,
20 mg daily x2 days, 10 mg daily x2 days.
carvedilol 6.25 mg Tablet
6.25 mg PO BID 30 Days Qty: 60 0RF
folic acid 1 MG tablet
1 mg PO NOON 30 Days Qty: 30 0RF
Jardiance 10 MG tablet
10 mg PO DAILY Qty: 30 0RF
furosemide 40 MG tablet
40 mg PO DAILY 30 Days Qty: 30 0RF
spironolactone 25 mg Tablet
25 mg PO DAILY 30 Days Qty: 30 0RF
levothyroxine [Synthroid] 125 mcg Tablet
125 mcg PO DAILY 30 Days Qty: 30 0RF
Rx Instructions:
Can only take name brand
losartan 25 MG tablet
25 mg PO DAILY 30 Days Qty: 30 0RF
hydroxychloroquine 200 MG tablet
400 mg PO DAILY 30 Days Qty: 60 0RF
acetaminophen [Tylenol Extra Strength] 500 mg tablet
1,000 mg PO TID PRN (Reason: mild pain)
Referrals:
Jim Gillis MD [Active] - (Tomorrow)
Kevin Juarez MD [Family Provider] -
Interventions
Interventions:
ED-Musculoskeletal Assessment Last Done: 06/24/23 15:33
Discharge Date and Time
Print Language: AMHARIC
[2023-06-24] MEDS: MOTRIN 600 MG PO (16:26)
[2023-06-24 18:08] VITALS: BP 138/80
== END 2023-06-24 18:12 | disposition home or self-care (01) ==
LOC: EMR 13:40
PROVIDERS: EMERGENCY PHYSICIAN Emergency Medicine; FAMILY PHYSICIAN Family Medicine
DX: M25.562 Pain in left knee (principal); I11.0 Hypertensive heart disease with heart failure; I50.9 Heart failure, unspecified
CPT/HCPCS: 99283; 73564

== ENCOUNTER → 2023-07-09 10:07 | Outpatient (REF) | payer MEDICARE, OTHER, SELFPAY | LOC: HWRCS 10:07 | PROVIDERS: ATTENDING PHYSICIAN Nuclear Medicine Nuclear Cardiology; FAMILY PHYSICIAN Physician Assistant Medical | DX: I42.8 Other cardiomyopathies (principal) | CPT/HCPCS: 93306 ==

== ENCOUNTER 2023-07-11 08:49 | Inpatient (IN) | payer MEDICARE, OTHER, SELFPAY ==
--- NOTE | 2023-06-21 10:08 | CM ---
Addendum entered by Yana Juarez 06/25/23 10:12:
Spoke with patient's daughter, Randi. She confirmed information provided by patient. She said that they will have patient stay on the first floor when she goes home. Daughter confirmed that her brother, Donato, will be home and she will also be there
to provide whatever assistance patietn needs.
Original Note:
Patient is scheduled for an elective L TKR on 07/11/23. Spoke with patient prior to surgery via telephone. Introduced role of Orthopedic Navigator. Patient reports that she lives with her two sons in a two story home. There are no steps to enter and
a flight of steps to the second floor. She currently functions independently. She has a rolling walker. She has had VN services through [facility]N. PCP is Kevin Juarez.
Discussed orthopedic program and post surgical plans. Reviewed anticipated length of stay and that goal is for her to return home at discharge. Also reviewed outpatient PT. Patient is in agreement with tentative plan but will need VN services.
Discussed options and PAC data; she selects VN. She states that her son, Donato, will be home with her.
Patient will complete online education.
Plan: Orthopedic Navigator will remain available to assist with the care of patient and will reassess discharge needs after surgery.
[2023-06-25 12:37] VITALS: BMI 22.5
[2023-06-25 13:51] LABS: Hematocrit 41.8 % (37.0-47.0); Hemoglobin 13.3 g/dL (12.0-16.0); Mean Corp Hgb Conc. 31.8 g/dL (33.0-37.0); Mean Corpuscular Hgb 27.9 pg (27.0-31.0); Mean Corpuscular Volume 87.6 fL (81.0-99.0); Mean Platelet Volume 9.3 fL (7.4-10.4); Platelet Count 283 10^3/uL (130-400); Red Blood Cell Count 4.77 10^6/uL (4.20-5.40); Red Cell Dist. Width 14.1 % (11.5-14.5)
[2023-06-25 14:16] LABS: ALT (SGPT) 11 U/L (0-35); AST (SGOT) 25 U/L (14-36); Alkaline Phosphatase 62 U/L (38-126); Blood Urea Nitrogen 15 mg/dl (7-17); Calcium 9.4 mg/dl (8.4-10.2); Carbon Dioxide 26 mmol/L (22-30); Chloride 102 mmol/L (98-107); Estimated Creatinine Clearance 52 ml/min; Glucose 80 mg/dl (70-99); Potassium 4.1 mmol/L (3.5-5.1); Sodium 138 mmol/L (135-145); Total Bilirubin 0.5 mg/dl (0.2-1.3); Total Protein 6.7 g/dl (6.3-8.2); eGFR > 60.00
[2023-06-25 14:49] LABS: Glycohemoglobin (HgbA1c) 5.7 % (4.0-5.6)
[2023-07-04 10:48] VITALS: BMI 22.5
[2023-07-11] VITALS (13 sets, daily range): BP systolic 115–168; BP diastolic 55–94; PULSE 61; O2SAT 94; BMI 22.5
[2023-07-11] MEDS: TYLENOL 650 MG PO ×4 (09:26→23:06)
[2023-07-11] MEDS: BACTROBAN NASAL 1 GRAM NASAL (09:26)
[2023-07-11] MEDS: NORMOSOL-R 1000 IV ×2 (09:32→13:29)
[2023-07-11] MEDS: DILAUDID 0.25 MG IV ×3 (13:28→14:03)
[2023-07-11] MEDS: ROXICODONE 5 MG PO (13:28)
--- NOTE | 2023-07-11 13:28 | W.PN.ORTHO ---
Addendum entered and electronically signed by Jim Gillis MD 07/11/23 16:22:
Patient seen and examined. Confused which is baseline. VSS. LLE: Dressing CDI. able to fully extend. NVI distally. Calf soft. ASA for DVT prophylaxis. Plan was for discharge home. May need rehab. Will follow.
Original Note:
Today's Communication / Plan
-
D/c when clinically stable.
Assessment
.
Distal Motor Intact: Yes
Dressing:
Clean, dry and intact.
Assessment:
L knee OA s/p L TKA w/ Dr Gillis 07/11/23
- s/p remote R TKA and remote R ALLYN by Dr Velázquez
DVT prophylaxis - ASA, b/l venous foot pumps
HTN - + parameters - monitor BP
Coronary artery disease, non-obstructive
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
Supraventricular tachycardia
- Monitor on tele
- Continue Carvedilol
CHFrEF and NICM - reduce hourly IVF rate to prevent fluid overload
Mild cognitive deficits - minimize opioids as able
Ambulatory dysfunction - on fall precautions
Hyperlipidemia
Trace mitral regurgitation
Chronic dyspnea on exertion
Remote diverticulitis
Irritable bowel syndrome
Cervical degenerative disc disease
Hypothyroidism
Left breast cancer, 2008, status post left lumpectomy, chemotherapy, and radiation
Melanoma, back, status post excision
Overactive bladder
Pseudogout of left knee, 06/01/2023, treated with Prednisone
Osteopenia
Prediabetes, A1c 5.7
History of alcohol dependence per records
Plan
.
Surgery / Date: L TKA w/ Dr Gillis 07/11/23
DVT Prophylaxis: Aspirin
Activity:
Out of bed.
PT/OT
Discharge Plan: Home w/ VN
Subjective
.
.:
Patient resting comfortably in PACU.
L knee pain minimal and currently well tolerated.
Denies any new significant complaints.
Vital Signs and Labs
.
Vital Signs and Labs:
Lab Results
06/25/23 12:33
06/25/23 12:33
Temp Pulse Resp BP Pulse Ox
98.4 F 64 16 157/81 99
07/11/23 09:13 07/11/23 09:13 07/11/23 09:13 07/11/23 09:13 07/11/23 09:13
Physical Exam
-
HEENT: No pallor, cyanosis, or jaundice. Throat clear.
NECK: Supple. No JVD.
RESPIRATORY: Lungs clear to auscultation.
CVS: S1, S2 normal. RRR.
ABDOMEN: Soft, non-tender. No distension.
EXTREMITIES: Strength equal, no calf pain with palpation/dorsiflexion. Calves soft.
MARKETING ASSISTANT MANAGER: AOx3. Mild cognitive deficits at baseline. audio technician grossly intact
--- NOTE | 2023-07-11 14:22 | PTCARENOTE ---
Pt arrived to [facility] [address] from PACU s/p L TKR. Pt on 2L NC satting 98%, IVF infusing, L knee aquacel with scant amount of drainage, NV intact. Pt oriented to call weinstein and room, bed locked and in lowest position, call weinstein within reach.
[2023-07-11] MEDS: SYNTHROID PO (15:23)
[2023-07-11] MEDS: ROXICODONE 2.5 MG PO (15:41)
[2023-07-11] MEDS: TORADOL 30 MG IV (15:41)
[2023-07-11] MEDS: LIDOCAINE 4% PATCH 2 PATCH TOPICAL (15:42)
[2023-07-11] MEDS: JARDIANCE 10 MG PO (15:43)
[2023-07-11] MEDS: FOLVITE 1 MG PO (15:43)
[2023-07-11] MEDS: PLAQUENIL PO (15:44)
[2023-07-11] MEDS: ANCEF 5 IV (17:45)
[2023-07-11] MEDS: ASPIRIN 325 MG PO (17:45)
[2023-07-11] MEDS: BACTROBAN 2% OINTMENT 1 APPLIC NASAL (19:43)
[2023-07-11] MEDS: COREG 6.25 MG PO (19:43)
[2023-07-11] MEDS: COLACE 100 MG PO (19:44)
[2023-07-11] MEDS: SENOKOT 17.1999999999999993 MG PO (19:44)
[2023-07-11] MEDS: DECADRON 4 MG PO (19:44)
[2023-07-11] MEDS: PEPCID 20 MG PO (23:06)
[2023-07-12] MEDS: ANCEF 5 IV (02:50)
[2023-07-12 03:13] VITALS: BP 122/69
[2023-07-12] MEDS: TYLENOL PO (04:33)
[2023-07-12 07:20] VITALS: BP 119/64
--- NOTE | 2023-07-12 07:27 | W.PN.ORTHO ---
Today's Communication / Plan
-
evaluate for discharge home today
Assessment
.
Distal Motor Intact: Yes
Dressing:
Clean, dry and intact. Spotty drainage as expected
Plan
.
Surgery / Date: L TKA w/ Dr Gillis 07/11/23
DVT Prophylaxis: Aspirin
Activity:
Out of bed.
PT/OT
Discharge Plan: Home w/ Outpatient PT
Discharge Information:
May require VN or rehab. Check progression today
Subjective
.
.:
Patient resting comfortably. Slept well. OOB yesterday with PT
Vital Signs and Labs
.
Vital Signs and Labs:
Lab Results
06/25/23 12:33
06/25/23 12:33
Temp Pulse Resp BP Pulse Ox
98.2 F 64 19 122/69 94
07/12/23 03:13 07/12/23 03:13 07/12/23 03:13 07/12/23 03:13 07/12/23 03:13
Physical Exam
-
Pulm: nonlabored
CV: regular
Abd: benign
Ext: LLE: NVI distally. Calf soft. Able to fully extend. Pain with flexion.
[2023-07-12] MEDS: PLAQUENIL 400 MG PO (07:50)
[2023-07-12] MEDS: SYNTHROID 125 MCG PO (07:50)
[2023-07-12] MEDS: COREG 6.25 MG PO (07:50)
[2023-07-12] MEDS: COLACE 100 MG PO (07:50)
[2023-07-12] MEDS: LIDOCAINE 4% PATCH 2 PATCH TOPICAL (07:50)
[2023-07-12] MEDS: DECADRON 4 MG PO (07:50)
[2023-07-12] MEDS: TYLENOL 650 MG PO ×2 (07:50→11:31)
[2023-07-12] MEDS: ASPIRIN 325 MG PO (07:50)
[2023-07-12] MEDS: SENOKOT 17.1999999999999993 MG PO (07:50)
[2023-07-12] MEDS: JARDIANCE 10 MG PO (07:51)
[2023-07-12] MEDS: BACTROBAN 2% OINTMENT 1 APPLIC NASAL (07:51)
[2023-07-12 08:45] VITALS: BMI 23.2
[2023-07-12 08:54] VITALS: BP 129/72; BP 139/72; PULSE 65; O2SAT 97
--- NOTE | 2023-07-12 08:54 | CM ---
Addendum entered by Yana Juarez 07/12/23 10:37:
Patient worked with PT and will need 24/ supervision. Call placed to patient's daughter to provide update. Reinforced need for 24 hour supervision due to baseline cognitive deficits. She expressed understanding and states they will be able to
provide this level of support.
Original Note:
Reviewed chart and held rounds with PT, OT and nursing. Patient admitted as planned for elective L TKR. Met with patient at bedside. Also spoke with her daughter, Randi. Confirmed information previously obtained for assessment. Also discussed
discharge plans. The plan is for patient to return home at discharge. Her son is home with her all the time and her daughter will also be coming over. Daughter states that someone will always be home with patient. Reviewed VN services including
start of care (tentatively 07/12), services to be ordered (PT, OT, SN) and frequency/duration of services. Options list provided and PAC data reviewed. They select VN.
Patient has a rolling walker at home. Discussed need for cane; daughter to obtain.
VN referral was completed and sent to [facility] through [employer] with request for start of care on 07/12. Confirmation received of their ability to accept case. fresh foods clerk to fax discharge instructions to [facility] when complete.
Patient will use [facility] pharmacy for discharge prescriptions.
--- NOTE | 2023-07-12 09:09 | W.PN.ORTHO ---
Today's Communication / Plan
-
Await PT recs. Pt did fairly well w/ OT.
D/c later today if remaining clinically stable.
Assessment
.
Distal Motor Intact: Yes
Dressing:
Scant old incisional drainage. Dressing otherwise C/D/I.
Assessment:
L knee OA s/p L TKA w/ Dr Gillis 07/11/23
- s/p remote R TKA and remote R ALLYN by Dr Velázquez
DVT prophylaxis - ASA, b/l venous foot pumps
HTN - + parameters - BPs stable
Coronary artery disease, non-obstructive
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
Supraventricular tachycardia
- Rhythm stable on tele
- Continue Carvedilol
CHFrEF and NICM - reduced hourly IVF rate to prevent fluid overload
- No s/sx of fluid overload during admission
Mild cognitive deficits - minimize opioids as able
Ambulatory dysfunction - on fall precautions
Hyperlipidemia
Trace mitral regurgitation
Chronic dyspnea on exertion
Remote diverticulitis
Irritable bowel syndrome
Cervical degenerative disc disease
Hypothyroidism
Left breast cancer, 2008, status post left lumpectomy, chemotherapy, and radiation
Melanoma, back, status post excision
Overactive bladder
Pseudogout of left knee, 06/01/2023, treated with Prednisone
Osteopenia
Prediabetes, A1c 5.7
History of alcohol dependence per records
Plan
.
Surgery / Date: L TKA w/ Dr Gillis 07/11/23
DVT Prophylaxis: Aspirin
Activity:
Out of bed.
PT/OT
Discharge Plan: Home w/ VN
Subjective
.
.:
Patient examined resting in her chair.
Just worked w/ OT. Is reporting 'throbbing' left knee pain after session but is due to be medicated w/ Oxycodone.
Denies any other new complaints.
Pt for possible d/c later today.
Vital Signs and Labs
.
Vital Signs and Labs:
Lab Results
06/25/23 12:33
06/25/23 12:33
Temp Pulse Resp BP Pulse Ox
98.2 F 63 16 119/64 95
07/12/23 07:20 07/12/23 07:20 07/12/23 07:20 07/12/23 07:49 07/12/23 07:20
Physical Exam
-
HEENT: No pallor, cyanosis, or jaundice. Throat clear.
NECK: Supple. No JVD.
RESPIRATORY: Lungs clear to auscultation.
CVS: S1, S2 normal. RRR. + ICD.
ABDOMEN: Soft, non-tender. No distension.
EXTREMITIES: Expected L knee post-surgical edema. Strength equal, no calf pain with palpation/dorsiflexion. Calves soft.
CONTENT DEVELOPMENT SPECIALIST: AOx3. Mild cognitive deficits at baseline. bag bundler grossly intact
[2023-07-12] MEDS: ROXICODONE 5 MG PO (09:21)
[2023-07-12 10:30] VITALS: BP 128/69; PULSE 62
--- NOTE | 2023-07-12 10:46 | W.DS.TRANS ---
DC Summary - Numerical Control Operator
-
Discharge Instructions:
Sleep Apnea Risk Low
Discharge Diagnosis/Procedures L knee OA s/p L TKA w/ Dr Gillis 07/11/23
Diet Regular
Activity As tolerated,With Walker,With assistance
Driving Restrictions Not until seen by your Dr
Bathing Restrictions OK to Shower
Other Services PT,VN,OT
Wound Care Dressing to be removed 1 week post-surgery.
Luis to be removed in 2 weeks at follow-up
appointment with surgeon's office.
Specialty Instructions Weigh Daily
Instructions:
Stand-Alone Forms: Total Hip/Knee Replacement D/C
Changes to Home Medications: Yes
Discharge Medications:
DC Medications w/original date entered in [employer]
therapeutic multivitamin 2 tab PO DAILY Supplement 03/21/23
empagliflozin 10 mg tablet (Jardiance) 10 mg PO DAILY Heart Failure #30 tabs 06/05/23
mupirocin 2 % topical ointment 1 applic intranasal BID #1 tube 06/25/23
acetaminophen 500 mg tablet (Tylenol Extra Strength) 1,000 mg (2 x 500 mg) PO Q6H #60 tabs 07/12/23
aspirin 325 mg tablet 325 mg PO DAILY #30 tabs 07/12/23
carvedilol 6.25 mg tablet 6.25 mg PO BID Blood Pressure 0 days #60 tabs 07/12/23
dexamethasone 4 mg tablet 4 mg PO BID #5 tabs 07/12/23
docusate sodium 100 mg capsule 100 mg PO BID #30 caps 07/12/23
famotidine 20 mg tablet 20 mg PO HS #30 tabs 07/12/23
folic acid 1 mg tablet 1 mg PO NOON Supplement 0 days #30 tabs 07/12/23
furosemide 40 mg tablet 40 mg PO DAILY Fluid retention/Swelling 0 days #30 tabs 07/12/23
hydroxychloroquine 200 mg tablet 400 mg (2 x 200 mg) PO DAILY rheumatoid arthritis 0 days #60 tabs 07/12/23
levothyroxine 125 mcg tablet (Synthroid) 125 mcg PO DAILY Thyroid 0 days #30 tabs 07/12/23
lidocaine 4 % topical patch 2 patch topical DAILY #30 ea 07/12/23
losartan 25 mg tablet 25 mg PO DAILY Heart Failure 30 days #30 tabs 07/12/23
meloxicam 15 mg tablet 15 mg PO DAILY #14 tabs 07/12/23
oxycodone 5 mg tablet 5 - 10 mg (1 - 2 x 5 mg) PO Q6H PRN moderate-severe pain #30 tabs 07/12/23
prochlorperazine maleate 5 mg tablet 5 mg PO Q8H PRN nausea and vomiting #30 tabs 07/12/23
sennosides 8.6 mg tablet (Senna Laxative) 17.2 mg (2 x 8.6 mg) PO BID #30 tabs 07/12/23
Home Medication Changes
acetaminophen 500 mg tablet (Tylenol Extra Strength) 1,000 mg (2 x 500 mg) PO Q6H #60 tabs 07/12/23
aspirin 325 mg tablet 325 mg PO DAILY #30 tabs 07/12/23
dexamethasone 4 mg tablet 4 mg PO BID #5 tabs 07/12/23
docusate sodium 100 mg capsule 100 mg PO BID #30 caps 07/12/23
famotidine 20 mg tablet 20 mg PO HS #30 tabs 07/12/23
lidocaine 4 % topical patch 2 patch topical DAILY #30 ea 07/12/23
meloxicam 15 mg tablet 15 mg PO DAILY #14 tabs 07/12/23
oxycodone 5 mg tablet 5 - 10 mg (1 - 2 x 5 mg) PO Q6H PRN moderate-severe pain #30 tabs 07/12/23
prochlorperazine maleate 5 mg tablet 5 mg PO Q8H PRN nausea and vomiting #30 tabs 07/12/23
sennosides 8.6 mg tablet (Senna Laxative) 17.2 mg (2 x 8.6 mg) PO BID #30 tabs 07/12/23
Pending Results: No
[2023-07-12 11:30] VITALS: BP 124/66
[2023-07-12] MEDS: FOLVITE 1 MG PO (11:31)
== END 2023-07-12 12:36 | disposition home health service (06) | DRG 470 ==
LOC: 2 SOUTH 08:49
PROVIDERS: ADMITTING PHYSICIAN Orthopaedic Surgery; FAMILY PHYSICIAN Family Medicine
PROC: 0SRD0J9 Replacement of Left Knee Joint with Synthetic Substitute, Cemented, Open Approach (ICD-10-PCS; 2023-07-11)
DX: M17.12 Unilateral primary osteoarthritis, left knee (principal); I42.8 Other cardiomyopathies; I50.22 Chronic systolic (congestive) heart failure; I11.0 Hypertensive heart disease with heart failure; E78.5 Hyperlipidemia, unspecified; I25.10 Atherosclerotic heart disease of native coronary artery without angina pectoris; R41.89 Other symptoms and signs involving cognitive functions and awareness; M50.30 Other cervical disc degeneration, unspecified cervical region; I34.0 Nonrheumatic mitral (valve) insufficiency; E03.9 Hypothyroidism, unspecified; N32.81 Overactive bladder; M11.262 Other chondrocalcinosis, left knee; R73.03 Prediabetes; F10.21 Alcohol dependence, in remission; M85.80 Other specified disorders of bone density and structure, unspecified site; Z96.641 Presence of right artificial hip joint; Z96.653 Presence of artificial knee joint, bilateral; Z95.810 Presence of automatic (implantable) cardiac defibrillator; Z86.74 Personal history of sudden cardiac arrest; Z85.3 Personal history of malignant neoplasm of breast; Z85.820 Personal history of malignant melanoma of skin; Z87.19 Personal history of other diseases of the digestive system; Z92.21 Personal history of antineoplastic chemotherapy; Z92.3 Personal history of irradiation; Z88.0 Allergy status to penicillin
CPT/HCPCS: 36415; 73560; 80053; 83036; 85027; 87070; 93306; 97116; 97162; 97167; 97530; 97535; C1713; C1776